=== PATIENT | female | born 1975 | race African-American/Black ===

== ENCOUNTER 2016-12-05 09:03 | Day surgery (SDC) | payer MEDICAID ==
[~2016-12-05 09:03] MED LIST: DIPHENHYDRAMINE HCL 50 MG/ML VIAL ONE; EPINEPHRINE INJ 1 MG/10 ML DISP.SYRIN ONE; FENTANYL CITRATE INJ/PF 100 MCG/2 ML AMPUL ONE; FLUMAZENIL INJ 0.5 MG/5 ML VIAL IV ONE; GLUCAGON,HUMAN RECOMB 1 MG INJ ONE; MIDAZOLAM 2 MG/2 ML INJ ONE; NALOXONE HCL INJ/PF 0.4 MG/1 ML SDV ONE; ONDANSETRON HCL INJ/PF 4 MG/2 ML SDV ONE; PROMETHAZINE HCL INJ 25 MG/1 ML VIAL ONE
[2016-12-05] MEDS: MIDAZOLAM 2 MG/2 ML INJ ONE ×3 (09:22→09:30)
--- NOTE | 2016-12-05 09:40 | Operative Report ---
Operative Report DATE OF SURGERY: 12/05/16 Operative Report: The risks benefits and alternatives of the procedure explained to the patient in detail and informed consent is obtained that GIF Olympus video scope was inserted into the patient's mouth and hypopharynx the esophagus is identified intubated and insufflated the scope was then advanced through the esophagus stomach and duodenum retroflexion maneuver is done the esophagus stomach and first and second portions of the duodenum examined PREOPERATIVE DIAGNOSIS: Nausea vomiting dyspepsia POSTOPERATIVE DIAGNOSIS: Gastritis status post biopsy. Gastric aspirate obtained to rule out for microbiology. Patient had previous biopsies demonstrating an infection etiology unknown. Apparently was not consistent with Helicobacter pylori OPERATION: EGD with biopsy SURGEON: BRONWYN MENDES ANESTHESIA: Moderate Sedation - 6 mg of Versed, 100 micrograms of fentanyl. TISSUE REMOVED OR ALTERED: Gastric specimen rule out Helicobacter pylori COMPLICATIONS: None. ESTIMATED BLOOD LOSS: none. INTRAOPERATIVE FINDINGS: Patent esophagus. Gastritis. Normal first and second portions of the duodenum PROCEDURE: Patient tolerated the procedure well. No immediate postprocedure complications are noted. Patient is discharged in good condition. Discharge date 12/05/2016. Discharge diet: Regular. Discharge activity: Regular. Patient does have a 2-3 week follow-up to discuss findings. She is instructed to call the office or proceed to the emergency room if there are any further problems or questions. We'll await on biopsies and microbiology report from the gastric aspirate.
[2016-12-05 10:38] VITALS: BP 121/56
== END 2016-12-05 11:00 | disposition home or self-care (01) ==
LOC: END 09:03
PROVIDERS: ATTEND Internal Medicine Gastroenterology
PROC: 0DB68ZX Excision of Stomach, Via Natural or Artificial Opening Endoscopic, Diagnostic (ICD-10-PCS; principal; 2016-12-05 09:30)
DX: K29.50 Unspecified chronic gastritis without bleeding (principal); K21.9 Gastro-esophageal reflux disease without esophagitis; E78.2 Mixed hyperlipidemia; Z79.899 Other long term (current) drug therapy; Z88.0 Allergy status to penicillin; Z88.6 Allergy status to analgesic agent
CPT/HCPCS: 43239; 88342 ×2; 88305 ×2; J2250; J3010; J1610; 36415; J0171; J1200; J2310; J2405; J2550; J3490

== ENCOUNTER → 2016-12-16 | Outpatient (CLI) | payer MEDICAID | LOC: RAD 09:28 | PROVIDERS: ATTEND Podiatrist Foot & Ankle Surgery | DX: Q66.9 Congenital deformity of feet, unspecified (principal) ==

== ENCOUNTER 2017-01-02 07:42 | Day surgery (SDC) | payer MEDICAID ==
[2016-12-31 10:27] LABS: APPEARANCE,URINE SLIGHTLY-CLOUDY; BILIRUBIN,URINE NEGATIVE (NEGATIVE); GLUCOSE, URINE NEGATIVE (NEGATIVE); KETONES,URINE NEGATIVE (NEGATIVE); LEUKOCYTE ESTERASE,URINE NEGATIVE (NEGATIVE); NITRITE,URINE NEGATIVE (NEGATIVE); PROTEIN,URINE NEGATIVE (NEGATIVE); URINE SPECIFIC GRAVITY 1.028
[2016-12-31 10:34] LABS: ABSOLUTE EOSINOPHILS # (AUTO) 0.2 10^3/uL (0.0-0.6); ABSOLUTE LYMPHOCYTES (AUTO) 2.5 10^3/uL (0.5-4.7); ABSOLUTE MONOCYTES (AUTO) 0.5 10^3/uL (0.1-1.4); ABSOLUTE NEUT (AUTO) 3.1 10^3/uL (1.7-8.2); BASOPHILS % (AUTO) 0.3 % (0-2); EOSINOPHILS % (AUTO) 2.5 % (0-6); HEMATOCRIT 37.3 % (36.0-47.0); HEMOGLOBIN 12.4 g/dL (12.0-15.5); HGB HCT DIFFERENCE -0.1; LYMPHOCYTES % (AUTO) 39.5 % (13-45); MEAN CORPUSCULAR HEMOGLOBIN 30.3 pg (27.0-33.4); MEAN CORPUSCULAR HGB CONC 33.3 g/dL (32.0-36.0); MEAN CORPUSCULAR VOLUME 91 fl (80-97); MONOCYTES % (AUTO) 8.7 % (3-13); RED CELL DISTRIBUTION WIDTH 13.4 % (11.5-14.0); WHITE BLOOD COUNT 6.3 10^3/uL (4.0-10.5)
[~2017-01-02 07:42] MED LIST changes: +BUPIVACAINE HCL 0.5 % INJ/PF 30 ML SDV ONE; +CLINDAMYCIN 600 MG/D5W RTU 600 MG/50 ML RTUPB IV PRN; -DIPHENHYDRAMINE HCL 50 MG/ML VIAL ONE; -EPINEPHRINE INJ 1 MG/10 ML DISP.SYRIN ONE; -FENTANYL CITRATE INJ/PF 100 MCG/2 ML AMPUL ONE; -FLUMAZENIL INJ 0.5 MG/5 ML VIAL IV ONE; -GLUCAGON,HUMAN RECOMB 1 MG INJ ONE; +LIDOCAINE 2% INJ (20 MG/ML) 20 ML MDV ONE; -MIDAZOLAM 2 MG/2 ML INJ ONE; -NALOXONE HCL INJ/PF 0.4 MG/1 ML SDV ONE; -ONDANSETRON HCL INJ/PF 4 MG/2 ML SDV ONE; -PROMETHAZINE HCL INJ 25 MG/1 ML VIAL ONE; +RINGERS SOLUTION,LACTATED 1,000 ML IV PRN
[2017-01-02] MEDS ORDERED: KETOROLAC TROMETHAMINE 60 MG/2 ML SDV ONE (08:48)
[2017-01-02] MEDS ORDERED: FENTANYL CITRATE INJ/PF 100 MCG/2 ML AMPUL ONE (08:48)
[2017-01-02] MEDS ORDERED: MIDAZOLAM 2 MG/2 ML INJ ONE (08:48)
[2017-01-02] MEDS ORDERED: LIDOCAINE 2% INJ-PF (20 MG/ML) 10 ML AMPUL ONE (08:48)
[2017-01-02] MEDS ORDERED: DIPHENHYDRAMINE HCL 50 MG/ML VIAL ONE (08:48)
[2017-01-02] MEDS ORDERED: PROPOFOL INJ 200 MG/20 ML VIAL IV ONE (08:49)
[2017-01-02] MEDS ORDERED: ONDANSETRON HCL INJ/PF 4 MG/2 ML SDV ONE (08:57)
[2017-01-02] MEDS: FENTANYL CITRATE INJ/PF 100 MCG/2 ML AMPUL ONE ×2 (10:50→10:55)
--- NOTE | 2017-01-02 11:53 | [facility] OPERATIVE REPORT E ---
[facility] Operative Report NAME: TREVER NICOLAS AGE: 41Y DATE OF SURGERY: 01/02/2017 ROOM: PREOPERATIVE DIAGNOSES: TAILOR BUNION RIGHT FOOT. DIGITI QUINTI VARUS FIFTH TOE RIGHT FOOT. POSTOPERATIVE DIAGNOSIS: TAILOR BUNION RIGHT FOOT. DIGITI QUINTI VARUS FIFTH TOE RIGHT FOOT. OPERATION: Oblique osteotomy fifth metatarsal head, right foot. Phalangectomy fifth toe right foot. SURGEON: ENRIQUETA VELASQUEZ D.P.M. INTRAOPERATIVE FINDINGS: Intraoperative findings indicated a plantar flexion with lateral deviation of the fifth metatarsal which has caused a very painful hyperkeratoma under the fifth metatarsophalangeal joint. There was a varus rotation of the fifth toe with dislocation of the distal interphalangeal joint which has created a very painful corn over the dorsal lateral aspect of the fifth toe. Intraoperative findings were confirmed clinically and radiographically. PROCEDURE: With the patient lying in the dorsal recumbent position, the right foot and leg were prepped and draped in the usual standard sterile orthopedic manner. After the anesthetic effect was accomplished, the right leg was elevated for approximately 2 minutes' of time and the right ankle pneumatic tourniquet was inflated up to 250 mmHg after the blood was exsanguinated from the right foot. The right leg was brought to the level of the table. Attention was directed right over the fifth metatarsophalangeal joint. A curvilinear incision was placed right over the joint. The initial incision was deepened. The superficial and deep subcutaneous tissues were dissected with blunt and sharp dissection. This dissection was carried until the capsular structures were brought into the surgical field. By this time, all bleeders were ligated, all vital structures were identified and protected from surgical trauma. Next, a vertical capsulotomy was performed. Capsular and periosteal structures were dissected of bone and the surgical neck of the fifth metatarsal was brought into the surgical field. At this point, the osteotomy was performed at this level from dorsal to plantar direction. It was angulated about 45 degrees to the long axis of the fifth metatarsal and the direction of angulation was medial proximal to lateral distal direction. After the osteotomy was completed, the head was shifted medially and dorsally which realigned the fifth metatarsophalangeal joint and removed the pressure from the plantar aspect of the fifth metatarsophalangeal joint. Next, the fifth toe was evaluated. It continued to be in a varus position and the decision was made to correct the deformity. A curvilinear incision was placed right over the fifth toe. The initial incision was deepened. The superficial and deep subcutaneous tissues were dissected via blunt and sharp dissection. All bleeders were ligated by this time. At this point, a transverse incision was placed right over the distal interphalangeal joint. Capsular and periosteal structures were dissected of bone and the partial phalangectomy was performed. This allowed the fifth toe to acquire a rectus position. Final evaluation was conducted. Correction was extremely satisfactory and at this point, the right ankle pneumatic tourniquet was deflated. Circulation returned to normal immediately as the normal digital color and temperature became apparent. Next, the surgical areas were irrigated with copious amounts of sterile saline solution. At this point, the capsular structures around the fifth metatarsophalangeal joint and the distal interphalangeal joint of the fifth toe were closed with 3-0 Vicryl. The subcutaneous tissues from deep to superficial were closed with 3-0 Vicryl. The skin edges were repositioned and closed with 4-0 nylon using continuous interlocked stitch. A Betadine compression dressing was applied around the surgical foot, followed with an Sánchez bandage and a surgical shoe. This patient tolerated the procedures well and left the operating room with stable vital signs and in good condition. The patient was taken to the recovery room alert, conscious and oriented. There are no permanent disabilities anticipated at this time. DICTATING PHYSICIAN: ENRIQUETA VELASQUEZ D.P.M. [id number] PHY#: [id number] ID: [id number] JOB#: [id number] ACCT: [id number] cc:ENRIQUETA VELASQUEZ D.P.M. >
== END 2017-01-02 11:46 | disposition home or self-care (01) ==
LOC: SC 07:42
PROVIDERS: ATTEND Podiatrist Foot & Ankle Surgery
PROC: 0QBN0ZZ Excision of Right Metatarsal, Open Approach (ICD-10-PCS; 2017-01-02)
PROC: 0QBQ0ZZ Excision of Right Toe Phalanx, Open Approach (ICD-10-PCS; principal; 2017-01-02 08:45)
DX: M21.621 Bunionette of right foot (principal); M21.171 Varus deformity, not elsewhere classified, right ankle; I49.9 Cardiac arrhythmia, unspecified; K21.9 Gastro-esophageal reflux disease without esophagitis; Z79.899 Other long term (current) drug therapy
CPT/HCPCS: 36415; 85025; 81001; 28124; 28306; J2250; S0077; J3490 ×2; J1200; J3010; J2405; J2704; 1480; J1885

== ENCOUNTER → 2017-02-13 | Outpatient (CLI) | payer MEDICAID | LOC: OD 08:18 | PROVIDERS: ATTEND Podiatrist Foot & Ankle Surgery | DX: Z98.890 Other specified postprocedural states (principal) ==

== ENCOUNTER → 2017-03-12 | Outpatient (CLI) | payer MEDICAID | LOC: OD 09:30 | PROVIDERS: ATTEND Podiatrist Foot & Ankle Surgery | DX: Z98.890 Other specified postprocedural states (principal) ==

== ENCOUNTER → 2017-04-13 | Outpatient (CLI) | payer MEDICAID ==
--- NOTE | 2017-04-13 15:43 | XCELERA REPORT ---
[address] [address] Lower Extremity Venous Evaluation Name: TREVER NICOLAS Age: 42 yrs Gender: Female : 1975 Patient Status: Outpatient Patient Location: Study Date: 04/13/2017 02:57 PM Procedure: Color flow and duplex imaging of the veins of the right lower extremity as well as the left Common Femoral vein. Reason For Study: RLE PAIN, SWELLING Ordering Physician: ENRIQUETA AWAN Performed By: Una Fang Right Sided Venous Evaluation Normal vessel filling wall to wall, compression and augmentation as well as Colour flow down to the infrageniculate veins. Left Sided Venous Evaluation The left common femoral vein is fully compressible. Spontaneous and phasic flow is present in the left common femoral vein. Critical Findings Called in to Dr Awan at about 1600. Interpretation Summary No duplex evidence of DVT or obstruction in the right lower extremity nor in the left Common Femoral vein. : ENRIQUETA AWAN > Cruz Carbajal
== END ==
LOC: SP 14:52
PROVIDERS: ATTEND Podiatrist Foot & Ankle Surgery
DX: M79.604 Pain in right leg (principal); M79.89 Other specified soft tissue disorders
CPT/HCPCS: 93971

== ENCOUNTER 2017-05-15 06:38 | Day surgery (SDC) | payer MEDICAID ==
[2017-05-12 10:51] LABS: APPEARANCE,URINE CLOUDY; BILIRUBIN,URINE NEGATIVE (NEGATIVE); GLUCOSE, URINE NEGATIVE (NEGATIVE); KETONES,URINE NEGATIVE (NEGATIVE); LEUKOCYTE ESTERASE,URINE NEGATIVE (NEGATIVE); NITRITE,URINE NEGATIVE (NEGATIVE); PROTEIN,URINE NEGATIVE (NEGATIVE); URINE SPECIFIC GRAVITY 1.021; UROBILINOGEN,URINE NEGATIVE mg/dL (<2.0)
[2017-05-12 10:59] LABS: ABSOLUTE EOSINOPHILS # (AUTO) 0.2 10^3/uL (0.0-0.6); ABSOLUTE LYMPHOCYTES (AUTO) 2.6 10^3/uL (0.5-4.7); ABSOLUTE MONOCYTES (AUTO) 0.6 10^3/uL (0.1-1.4); ABSOLUTE NEUT (AUTO) 3.3 10^3/uL (1.7-8.2); BASOPHILS % (AUTO) 0.5 % (0-2); EOSINOPHILS % (AUTO) 3.6 % (0-6); HEMATOCRIT 36.4 % (36.0-47.0); HGB HCT DIFFERENCE -0.4; LYMPHOCYTES % (AUTO) 38.6 % (13-45); MEAN CORPUSCULAR HGB CONC 33.1 g/dL (32.0-36.0); MEAN CORPUSCULAR VOLUME 91 fl (80-97); RED BLOOD COUNT 4.02 10^6/uL (3.72-5.28); RED CELL DISTRIBUTION WIDTH 13.2 % (11.5-14.0); SEGMENTED NEUTROPHILS % (AUTO) 48.3 % (42-78); WHITE BLOOD COUNT 6.7 10^3/uL (4.0-10.5)
[~2017-05-15 06:38] MED LIST changes: -BUPIVACAINE HCL 0.5 % INJ/PF 30 ML SDV ONE; +CEFAZOLIN 1 GM/D5W RTU 1 GM/50 ML RTUPB IV PRN; -CLINDAMYCIN 600 MG/D5W RTU 600 MG/50 ML RTUPB IV PRN; -LIDOCAINE 2% INJ (20 MG/ML) 20 ML MDV ONE
[2017-05-15] MEDS ORDERED: DIPHENHYDRAMINE HCL 50 MG/ML VIAL ONE (07:10)
[2017-05-15] MEDS ORDERED: LIDOCAINE 2% INJ (20 MG/ML) 20 ML MDV ONE (07:10)
[2017-05-15] MEDS ORDERED: KETOROLAC TROMETHAMINE 60 MG/2 ML SDV ONE (07:11)
[2017-05-15] MEDS ORDERED: BUPIVACAINE HCL 0.5 % INJ/PF 30 ML SDV ONE (07:11)
[2017-05-15] MEDS ORDERED: FENTANYL CITRATE INJ/PF 100 MCG/2 ML AMPUL ONE (07:11)
[2017-05-15] MEDS ORDERED: MIDAZOLAM 2 MG/2 ML INJ ONE ×2 (07:11)
[2017-05-15] MEDS ORDERED: LIDOCAINE 2% INJ-PF (20 MG/ML) 10 ML AMPUL ONE (07:11)
[2017-05-15] MEDS ORDERED: PROPOFOL INJ 200 MG/20 ML VIAL IV ONE (07:12)
[2017-05-15] MEDS ORDERED: CLINDAMYCIN 600 MG/D5W RTU 600 MG/50 ML RTUPB IV ONE (07:30)
[2017-05-15] MEDS ORDERED: ONDANSETRON HCL INJ/PF 4 MG/2 ML SDV ONE (07:35)
[2017-05-15] MEDS ORDERED: CLINDAMYCIN 600 MG/D5W RTU 600 MG/50 ML RTUPB IV PRN (07:37)
--- NOTE | 2017-05-15 16:39 | RADIOLOGY REPORT (SQ) ---
EXAM DESCRIPTION: FOOT RIGHT 2 VIEWS COMPLETED DATE/TIME: 05/15/2017 2:22 pm REASON FOR STUDY: RT GREAT TOE OPEN WEDGE BASE PROX HALLUX M20.21 HALLUX RIGIDUS, RIGHT FOOT COMPARISON: None. FLUOROSCOPY TIME: 0.05 seconds 3 images saved to PACS. TECHNIQUE: Intra-operative images acquired during surgical procedure to evaluate progress. NUMBER OF IMAGES: 3 image LIMITATIONS: None. FINDINGS: Fluoroscopic images were obtained during osteotomy for hallux valgus. Orthopedic pin is i dentified IMPRESSION: IMAGE(S) OBTAINED DURING PROCEDURE. COMMENT: Quality ID [id number]: Final reports for procedures using fluoroscopy that document radiation exp osure indices, or exposure time and number of fluorographic images (if radiation exposure indices are not available) Please consult full operative report of the attending physician for description of the procedure. TECHNICAL DOCUMENTATION: JOB ID: [id number] [employer]- All Rights Reserved
--- NOTE | 2017-05-15 16:39 | RADIOLOGY REPORT (SQ) ---
EXAM DESCRIPTION: NO CHG FLUORO COMPLETE DATE/TIME: 05/15/2017 2:22 pm REASON FOR STUDY: RT GREAT TOE RE-SURFACING JOHN M20.21 HALLUX RIGIDUS, RIGHT FOOT FINDINGS: Please see combined report for performance of procedure and radiologic supervision and int erpretation. IMPRESSION: Please see combined report for performance of procedure and radiologic supervision and i nterpretation.
--- NOTE | 2017-06-11 10:02 | [facility]PERAT[facility] REPORT E ---
[facility] Operative Report NAME: TREVER NICOLAS AGE: 42Y DATE OF SURGERY: 05/15/2017 ROOM: PREOPERATIVE DIAGNOSIS: Hallux limitus, right foot. POSTOPERATIVE DIAGNOSIS: Hallux limitus, right foot. PROCEDURE PERFORMED: 1. Revision surgery with total Tuttle implant, right first metatarsophalangeal joint. 2. Application of amniotic allograft over the denuded bone, first metatarsal, right foot. SURGEON: ENRIQUETA VELASQUEZ D.P.M. INTRAOPERATIVE FINDINGS: Indicated total failure from a eunice-implant that has been used in the past to correct the above structural deformity of the right foot. The eunice-implant was totally submerged with proliferated bone tissue at the base of the proximal phalanx. The eunice-implant was introduced into the base of the proximal phalanx. This proliferation of bone has totally blocked the joint and the patient had the same symptoms of lack of motion of the first metatarsophalangeal joint prior to the eunice-implant. Intraoperative findings were confirmed clinically and radiographically. PROCEDURE: With the patient laying in a dorsal recumbent position the right foot and leg were prepped and draped in the usual standard sterile orthopedic manner after the local anesthesia was administered which was a total ankle block. After the anesthetic effect was accomplished the right leg was elevated for approximately 2 minutes of time and the right ankle pneumatic tourniquet was inflated up to 250 mmHg after the blood was exsanguinated from the right foot. The right leg was brought to the level of the table. Attention was directed over the first metatarsophalangeal joint. A curvilinear incision was placed right over the joint. The initial incision was deepened. The superficial and deep subcutaneous tissues were dissected via blunt and sharp dissection. All bleeders were ligated. All vital structures were identified and protected from surgical trauma. At this point all the adhesions that had been created by the previous 2 surgeries were released and the joint was able to be opened sufficiently in order to continue with the rest of the surgical work. At this point the eunice-implant was removed from the base of the proximal phalanx. A resection of all abnormal bone was carried at this point. Next, the head of the first metatarsal was reamed and the bed for the longer arm of the implant was created at this point. Next, the base of the proximal phalanx was also remodeled. The bed for the short arm of the implant was also created very gingerly since there was already a provision of space created by the previous implant. At this point the anamaria implant was introduced into the surgical field and it was a size 1 anamaria implant. The joint was put through a full range of motion and there was already over 80% dorsiflexion of the hallux on the first metatarsal. At this point the anamaria implant was removed. The surgical area was irrigated with copious amounts of sterile saline solution and the actual implant was introduced into the first metatarsophalangeal joint. This was a RTS flexible first MPJ total implant. The implant was introduced into the prepared surgical area. It seated very well and there was full range of motion. The hallux was able to dorsiflex about 80-85 degrees dorsally. At this point the decision was made not to use the grommets due to previous signs of proliferation of bone due to jamming by the metal grommets that might be created. Next, the capsular structures were closed with 2-0 Vicryl. The subcutaneous tissue from deep to superficial was closed with 3-0 Vicryl very gingerly to prevent additional excessive scarring of the subcutaneous tissues. The skin edges were repositioned and were anchored down with 4-0 nylon using continuous interlocked stitch. ADDENDUM: Prior to closure of the capsule, the denuded bony sites at the distal aspect of the first metatarsal and the base of the proximal phalanx were covered with amniotic allograft to prevent not only excessive bleeding of the bone but also to prevent adhesions of the capsule to the bone which is going to interfere with range of motion of the implant. After the successful closure of the skin, a Betadine compression dressing was applied around the surgical area of the right foot which followed with Sánchez bandage and a surgical shoe. This patient tolerated the procedures well, left the operating room with stable vital signs and in good condition. The immediate postoperative recovery was also very uneventful. Patient was sent home with instructions for postoperative care at home. Patient had the discussion of how to manage the pain medicine and the antibiotics postoperatively. Patient was allowed to return to normal diet. Follow-up appointment was set in my office in 72 hours. There are no permanent disabilities anticipated at this time. DICTATING PHYSICIAN: ENRIQUETA VELASQUEZ D.P.M. [id number] PHY#: [id number] ID: [id number] JOB#: [id number] ACCT: [id number] cc:ENRIQUETA VELASUQEZ D.P.M. >
== END 2017-05-15 11:06 | disposition home or self-care (01) ==
LOC: SC 06:38
PROVIDERS: ATTEND Podiatrist Foot & Ankle Surgery
DX: M20.5X1 Other deformities of toe(s) (acquired), right foot (principal); K21.9 Gastro-esophageal reflux disease without esophagitis; Z79.899 Other long term (current) drug therapy; Z88.0 Allergy status to penicillin; Z88.6 Allergy status to analgesic agent
CPT/HCPCS: 36415; 85025; 81001; 73620; 28309; J2250; S0077; J3490 ×2; J1200; J1885; J3010; J2405; J2704; 01480; J0690

== ENCOUNTER 2017-07-26 08:17 | Emergency (ER) | payer MEDICAID ==
--- NOTE | 2017-07-26 08:49 | ER Document Report ---
ED General - General Chief Complaint: Abdominal Pain Stated Complaint: ABDOMINAL PAIN Time Seen by Provider: 07/26/17 08:32 TRAVEL OUTSIDE OF THE [place] IN LAST 30 DAYS: No - HPI Notes: Patient is a 42-year-old female with a history of acid reflux who presents to the ED complaining of suprapubic pressure, dysuria, possible yeast infection, low back pain, occasional mild headache, right ear pain 2 days. Patient states that she did feel feverish a couple days ago, but that has since resolved. Patient states that she still eating and drinking without any difficulties. She is having normal bowel movements otherwise. She has not been using [id number] meds for her medications. Patient states that she has had chronic back pain issues and this is similar. Patient states that the pain is an ache and is bilaterally to the L-spine. The pain does not radiate around into the groin. The pain has not been intermittent. Denies any injury. Denies any procedures or injections to her back. Denies any smoking or IV drug use. Patient denies any pain in her abdomen. She denies any reid blood, vaginal bleeding/odor. Denies any current headache, fever, head injury, neck pain, URI, sore throat, chest pain, palpitations, syncope, cough, shortness of breath, wheeze, dyspnea, abdominal pain, nausea/vomiting/diarrhea, urinary retention, hematuria, loss of control of bowel or bladder, numbness/tingling, saddle anesthesia, muscle paralysis/weakness, or rash. Denies any recent illness. Patient also complains of a possible bump to her right lower anteromedial leg x1mo. Pt states that it has since resolved. She never had any erythema, warmth , abscess, discharge, or pain associated. - Related Data Allergies/Adverse Reactions: Penicillins Allergy (Mild, Verified 07/26/17 08:26) Unknown reaction NSAIDS (Non-Steroidal Anti-Inflamma [Nsaids] Adverse Reaction (Mild, Verified 08:26) stomach upset Past Medical History - Social History Smoking Status: Unknown if Ever Smoked Family History: Reviewed & Not Pertinent Patient has suicidal ideation: No Patient has homicidal ideation: No - Past Medical History Cardiac Medical History: Denies: Hx Coronary Artery Disease, Hx Heart Attack, Hx Hypertension Pulmonary Medical History: Denies: Hx Asthma, Hx Bronchitis, Hx COPD, Hx Pneumonia Neurological Medical History: Denies: Hx Cerebrovascular Accident, Hx Seizures Renal/ Medical History: Denies: Hx Peritoneal Dialysis GI Medical History: Reports: Hx Gastroesophageal Reflux Disease, Hx Hiatal Hernia. Denies: Hx Hepatitis, Hx Ulcer Musculoskeltal Medical History: Denies Hx Arthritis Infectious Medical History: Denies: Hx Hepatitis Past Surgical History: Reports: Hx Orthopedic Surgery - R big and small toe, carpel tunnel bilaterally, Hx Tonsillectomy, Hx Tubal Ligation. Denies: Hx Hysterectomy, Hx Mastectomy, Hx Open Heart Surgery, Hx Pacemaker - Immunizations Immunizations up to date: Yes Hx Diphtheria, Pertussis, Tetanus Vaccination: Yes Review of Systems - Review of Systems Notes: REVIEW OF SYSTEMS: CONSTITUTIONAL : Denies fever, chills, or sweats. Denies recent illness. EENT: Denies eye, ear, throat, or mouth pain or symptoms. Denies nasal or sinus congestion or discharge. Denies throat, tongue, or mouth swelling or difficulty swallowing. CARDIOVASCULAR: Denies chest pain. Denies palpitations or racing or irregular heart beat. Denies ankle edema. RESPIRATORY: Denies cough, cold, or chest congestion. Denies shortness of breath, difficulty breathing, or wheezing. GASTROINTESTINAL: see hpi. Denies abdominal pain or distention. Denies nausea , vomiting, or diarrhea. Denies blood in vomitus, stools, or per rectum. Denies black, tarry stools. Denies constipation. GENITOURINARY: see hpi FEMALE GENITOURINARY: Denies vaginal bleeding, heavy or abnormal periods, irregular periods. Denies vaginal discharge or odor. MUSCULOSKELETAL: Denies back or neck pain or stiffness. Denies joint pain or swelling. SKIN: Denies rash, lesions or sores. NEUROLOGICAL: Denies confusion or altered mental status. Denies passing out or loss of consciousness. Denies dizziness or lightheadedness. Denies headache. Denies weakness or paralysis or loss of use of either side. Denies problems with gait or speech. Denies sensory loss, numbness, or tingling. ALL OTHER SYSTEMS REVIEWED AND NEGATIVE. Dictation was performed using [employer] recognition software Physical Exam - Vital signs Vitals: Temp Pulse Resp BP Pulse Ox 99.1 F 98 16 140/88 H 98 07/26/17 08:20 07/26/17 08:20 07/26/17 08:20 07/26/17 08:20 07/26/17 08:20 Notes: PHYSICAL EXAMINATION: GENERAL: Well-appearing, well-nourished and in no acute distress. A&Ox4. Pt sitting comfortably on the exam table in no apparent distress or discomfort. HEAD: Atraumatic, normocephalic. Nontender. EYES: Pupils equal round and reactive to light, extraocular movements intact, conjunctiva are normal. ENT: Nares patent, oropharynx clear without exudates. Moist mucous membranes. EAC's clear bilaterally. TMs intact bilaterally without erythema fluid or perforation. No tonsillar hypertrophy or erythema. No sinus tenderness. NECK: Normal range of motion, supple without lymphadenopathy. No rigidity/ meningismus. LUNGS: Breath sounds clear to auscultation bilaterally and equal. No wheezes rales or rhonchi. HEART: Regular rate and rhythm without murmurs ABDOMEN: Soft, NONtender, nondistended abdomen. No guarding, no rebound. No masses appreciated. Normal bowel sounds present. CVA tenderness negative bilaterally. Psoas/rosving negative. Female : No inguinal adenopathy. External genitalia without erythema, lesions , or masses. Vaginal mucosa pink with white discharge Cervix parous, pink, and without discharge. Uterus is smooth. No adnexal tenderness. Musculoskeletal: LE's b/l: FROM to passive/active. Strength 5+/5. Extremities: No cyanosis/clubbing/edema b/l. Peripheral pulses 2+. Capillary refill less than 3 seconds. NEUROLOGICAL: MMSE intact. Cranial nerves grossly intact. Normal speech, normal gait. Normal sensory, motor exams PSYCH: Normal mood, normal affect. SKIN: Warm, Dry, normal turgor, no rashes or lesions noted. Course - Re-evaluation Re-evalutation: 07/26/17 09:36 Patient is an afebrile, well-hydrated, 42-year-old female who presents to the ED with back pain, suspected UTI, and bacterial vaginosis based on H&P today. Vitals are stable. PE otherwise unremarkable. CBC, CMP, lipase, urine unremarkable. See urinalysis results. Urine cultures pending. See wet mount results. Chlamydia/gonorrhea pending, but I have a low suspicion of an STD infection. Zithromax 1 g given p.o. today. Patient is allergic to penicillins (unknown rxn) so we will hold off on the Rocephin injection at this time. Risks and benefits are understood. Patient is in agreement that she will return if she needs the Rocephin injection. No other imaging warranted today. Low suspicion/risk for acute appendicitis, bowel obstruction, acute cholecystitis, acute cholangitis, perforated diverticulitis, incarcerated hernia , pancreatitis, perforated ulcer, peritonitis, sepsis, pelvic inflammatory disease, ectopic , tubo-ovarian abscess, ovarian torsion, meningitis, disk herniation causing severe spinal stenosis, cauda equina, epidural mass lesion, abscess, fracture, or other systemic emergent condition at this time. Patient is aware that her condition can change from initial presentation and she needs to monitor symptoms closely and seek medical attention if any acute changes. I will send her home with a prescription for Flagyl to take twice daily for 1 week as well as macrobid. Conservative measures otherwise for symptoms. Recheck with OBGYN in 3-5 days. Recheck with your PCM in 3-5 days. Return to the ED with any worsening/concerning symptoms otherwise as reviewed in discharge. Patient is in agreement. - Vital Signs Vital signs: Temp Pulse Resp BP Pulse Ox 99.1 F 98 16 140/88 H 98 07/26/17 08:20 07/26/17 08:20 07/26/17 08:20 07/26/17 08:20 07/26/17 08:20 - Laboratory Result Diagrams: 07/26/17 08:55 07/26/17 08:55 Laboratory results interpreted by me: 07/26/17 07/26/17 07/26/17 08:55 08:55 08:55 Hct 35.9 L Calcium 10.7 H Total Bilirubin 1.6 H AST 38 H Urine Protein 100 H Ur Leukocyte Esterase MODERATE H Urine Ascorbic Acid 40 H Procedures - Pelvic Exam Pelvic exam Time completed: 09:05 Cultures obtained: Yes Wet prep obtained: Yes Bimanual exam performed: Yes - neg Witnessed by: Nurse Dorie accompanied Discharge - Discharge Clinical Impression: Bacterial vaginosis UTI (urinary tract infection) Qualifiers: Urinary tract infection type: site unspecified Hematuria presence: without hematuria Qualified Code(s): N39.0 - Urinary tract infection, site not specified Condition: Stable Disposition: HOME, SELF-CARE Instructions: Metronidazole ([facility]), Nitrofurantoin ([facility]), Urinary Tract Infection ([facility]), Follow-Up Care ([facility]) Additional Instructions: Push fluids (i.e. water, cranberry juice) Proper hygenic technique Keep the skin clean Safe sexual practices with condoms everytime Tylenol/ibuprofen as needed May use over the counter AZO for burning with urination Check in with the health department this week for further testing if warranted/ needed Your chlamydia/Gonorrhea test are pending and you will be notified if positive results; you may call in 2 days for the results as well Return immediately if symptoms worsen F/u with your PCM in 2-3 days for a recheck Recheck with your OBGYN in 3-5 days. Consider consult with a Urologist for ongoing/worsening symptoms. Return to the ED with any development of GRANDE/fever, trouble with vision, eye redness, worsening pain, urethral discharge, urinary retention, blood in the urine, flank pain, abdominal pain, n/v, Chest Pain, shortness of breath, joint pains, trouble breathing, or any other worsening/concerning symptoms as needed otherwise. Prescriptions: Metronidazole [Flagyl] 500 mg PO BID #14 tablet Nitrofurantoin/Nitrofuran Mac [Macrobid 100 mg Capsule] 1 tab PO BID #14 capsule Forms: Elevated Blood Pressure Referrals: KIRK MARIE DO [Primary Care Provider] - Follow up in 3-5 days [facility] [Provider Group] - Follow up as needed
[2017-07-26 09:20] LABS: ABSOLUTE EOSINOPHILS # (AUTO) 0.2 10^3/uL (0.0-0.6); ABSOLUTE LYMPHOCYTES (AUTO) 2.5 10^3/uL (0.5-4.7); ABSOLUTE MONOCYTES (AUTO) 0.9 10^3/uL (0.1-1.4); ABSOLUTE NEUT (AUTO) 5.6 10^3/uL (1.7-8.2); BASOPHILS % (AUTO) 0.3 % (0-2); EOSINOPHILS % (AUTO) 1.7 % (0-6); HEMATOCRIT 35.9 % (36.0-47.0); HEMOGLOBIN 12.3 g/dL (12.0-15.5); LYMPHOCYTES % (AUTO) 26.8 % (13-45); MEAN CORPUSCULAR HEMOGLOBIN 31.1 pg (27.0-33.4); MEAN CORPUSCULAR HGB CONC 34.3 g/dL (32.0-36.0); MEAN CORPUSCULAR VOLUME 91 fl (80-97); MONOCYTES % (AUTO) 10.1 % (3-13); RED BLOOD COUNT 3.96 10^6/uL (3.72-5.28); RED CELL DISTRIBUTION WIDTH 13.6 % (11.5-14.0); SEGMENTED NEUTROPHILS % (AUTO) 61.1 % (42-78); WHITE BLOOD COUNT 9.2 10^3/uL (4.0-10.5)
[2017-07-26 09:24] LABS: APPEARANCE,URINE SLIGHTLY-CLOUDY; BILIRUBIN,URINE NEGATIVE (NEGATIVE); GLUCOSE, URINE NEGATIVE (NEGATIVE); KETONES,URINE NEGATIVE (NEGATIVE); LEUKOCYTE ESTERASE,URINE MODERATE (NEGATIVE); NITRITE,URINE NEGATIVE (NEGATIVE); PROTEIN,URINE 100 mg/dL (NEGATIVE); URINE SPECIFIC GRAVITY 1.019; UROBILINOGEN,URINE NEGATIVE mg/dL (<2.0)
[2017-07-26 09:31] LABS: ALANINE AMINOTRANSFERASE 51 U/L (9-52); ALBUMIN 4.3 g/dL (3.5-5.0); ALKALINE PHOSPHATASE 89 U/L (38-126); ANION GAP 10 (5-19); ASPARTATE AMINO TRANSFERASE 38 U/L (14-36); BILIRUBIN,DIRECT 0.4 mg/dL (0.0-0.4); BILIRUBIN,TOTAL 1.6 mg/dL (0.2-1.3); BLOOD UREA NITROGEN 12 mg/dL (7-20); CALCIUM 10.7 mg/dL (8.4-10.2); CARBON DIOXIDE 27 mmol/L (22-30); CHLORIDE 105 mmol/L (98-107); CREATININE RESULT 0.88 mg/dL (0.52-1.25); GLUCOSE 97 mg/dL (75-110); LIPASE 83.2 U/L (23-300); POTASSIUM 3.9 mmol/L (3.6-5.0); SODIUM 141.6 mmol/L (137-145); TOTAL PROTEIN 7.6 g/dL (6.3-8.2)
[2017-07-26] MEDS ORDERED: AZITHROMYCIN 250 MG TABLET PO ONE (09:38)
[2017-07-26 10:37] VITALS: BP 126/77
[2017-07-26 11:04] LABS: CHLAM PCR NOT DETECTED (NOT DETECT)
== END 2017-07-26 10:37 | disposition home or self-care (01) ==
LOC: ER 08:17
DX: N39.0 Urinary tract infection, site not specified (principal); N76.0 Acute vaginitis; B96.89 Other specified bacterial agents as the cause of diseases classified elsewhere; Z98.51 Tubal ligation status; Z88.0 Allergy status to penicillin
CPT/HCPCS: 99283; 36415; 87086; 87210; 83690; 85025; 81025; 87088; 80053; 81001; 87186; 87491; 87591; Q0144

== ENCOUNTER 2017-07-31 10:38 | Day surgery (SDC) | payer MEDICAID ==
[~2017-07-31 10:38] MED LIST changes: -CEFAZOLIN 1 GM/D5W RTU 1 GM/50 ML RTUPB IV PRN; +DIPHENHYDRAMINE HCL 50 MG/ML VIAL ONE; +EPINEPHRINE INJ 1 MG/10 ML DISP.SYRIN ONE; +FENTANYL CITRATE INJ/PF 100 MCG/2 ML AMPUL ONE; +FLUMAZENIL INJ 0.5 MG/5 ML VIAL ONE; +GLUCAGON,HUMAN RECOMB 1 MG INJ ONE; +NALOXONE HCL INJ/PF 0.4 MG/1 ML SDV ONE; +ONDANSETRON HCL INJ/PF 4 MG/2 ML SDV ONE; -RINGERS SOLUTION,LACTATED 1,000 ML IV PRN
[2017-07-31] MEDS: MIDAZOLAM 2 MG/2 ML INJ ONE ×2 (11:12→11:16)
--- NOTE | 2017-07-31 11:33 | Operative Report ---
Operative Report DATE OF SURGERY: 07/31/17 Operative Report: The risks benefits and alternatives of the procedure explained to the patient in detail and informed consent is obtained.A GIF Olympus video scope was inserted into the patient's mouth and hypopharynx, the esophagus is identified intubated and insufflated ,the scope was then advanced through the esophagus stomach and duodenum ,retroflexion maneuver is done ,the esophagus stomach and first and second portions of the duodenum examined PREOPERATIVE DIAGNOSIS: Dysphagia POSTOPERATIVE DIAGNOSIS: Patient was not able to tolerate conscious sedation. Intubation had been done and scope was actually in the stomach, patient woke up and pulled the scope out. No further attempts were made to continue the procedure. We called the operating room to see if they may be able to accommodate with propofol sedation. Anesthesia decline OPERATION: Diagnostic EGD SURGEON: BRONWYN MENDES ANESTHESIA: Moderate Sedation - 25 mg of Benadryl, 3 mg of Versed. 75 mcg of fentanyl. Conscious sedation monitoring time 30 minutes. TISSUE REMOVED OR ALTERED: None. COMPLICATIONS: None. ESTIMATED BLOOD LOSS: None. INTRAOPERATIVE FINDINGS: In the brief time that the scope was in the stomach that did not appear to be significant ulcers. Schatzki's ring is noted. Unable to perform therapeutic procedure due to patient's pulling out of the scope PROCEDURE: Patient is not able to tolerate conscious sedation. We will need to reschedule with propofol sedation. She is discharged in good condition. Discharge date 07/31/2017. Discharge diet: Regular. Discharge activity: Regular. As needed follow-up. We will see the patient wants to reschedule.
[2017-07-31 12:57] VITALS: BP 113/74
== END 2017-07-31 12:20 | disposition home or self-care (01) ==
LOC: END 10:38
PROVIDERS: ATTEND Internal Medicine Gastroenterology
PROC: 0DJ08ZZ Inspection of Upper Intestinal Tract, Via Natural or Artificial Opening Endoscopic (ICD-10-PCS; principal; 2017-07-31 11:30)
DX: K22.2 Esophageal obstruction (principal); E78.2 Mixed hyperlipidemia; K21.9 Gastro-esophageal reflux disease without esophagitis; Z79.899 Other long term (current) drug therapy; Z88.0 Allergy status to penicillin; Z88.6 Allergy status to analgesic agent
CPT/HCPCS: 43235; J2250; J1200; J3010; J2405; J0171; J1610; J2310; J3490

== ENCOUNTER 2017-08-14 09:25 | Emergency (ER) | payer MEDICAID ==
--- NOTE | 2017-08-14 10:17 | ER Document Report ---
HPI - HPI Patient complains to provider of: Cough since Thursday Onset: Other - Thursday Pain Level: 4 Context: 42-year-old non-smoker complaining of a cough since Thursday. She feels some postnasal drip. No chest pain or shortness of breath. No history of asthma. No fever. Associated Symptoms: None Exacerbated by: Denies Relieved by: Denies Similar symptoms previously: No Recently seen / treated by doctor: No - ROS ROS below otherwise negative: Yes Systems Reviewed and Negative: Yes All other systems reviewed and negative - CARDIOVASCULAR Cardiovascular: DENIES: Chest pain - RESPIRATORY Respiratory: REPORTS: Coughing - REPRODUCTIVE Reproductive: DENIES: : - DERM Skin Color: Normal Past Medical History - General Information source: Patient - Social History Smoking Status: Never Smoker Chew tobacco use (# tins/day): No Frequency of alcohol use: None Drug Abuse: None Lives with: Family Family History: Reviewed & Not Pertinent Patient has suicidal ideation: No Patient has homicidal ideation: No Renal/ Medical History: Denies: Hx Peritoneal Dialysis GI Medical History: Reports: Hx Gastroesophageal Reflux Disease, Hx Hiatal Hernia Past Surgical History: Reports: Hx Orthopedic Surgery - R big and small toe, carpel tunnel bilaterally, Hx Tonsillectomy, Hx Tubal Ligation - Immunizations Immunizations up to date: Yes Hx Diphtheria, Pertussis, Tetanus Vaccination: Yes Vertical Provider Document - CONSTITUTIONAL Agree With Documented VS: Yes Exam Limitations: No Limitations - INFECTION CONTROL TRAVEL OUTSIDE OF THE [place] IN LAST 30 DAYS: No - HEENT HEENT: Normocephalic, Pharyngeal Erythema - mild. negative: Conjuctival Injection, Tympanic Membrane Red, Tympanic Membrane Bulging - NECK Neck: Supple. negative: Lymphadenopathy-Left, Lymphadenopathy-Right - RESPIRATORY Respiratory: Breath Sounds Normal, No Respiratory Distress O2 Sat by Pulse Oximetry: 100 - CARDIOVASCULAR Cardiovascular: Regular Rate, Regular Rhythm - GI/ABDOMEN Gastrointestinal: Abdomen Soft, Abdomen Non-Tender, No Organomegaly - NEURO Level of Consciousness: Awake, Alert, Appropriate Motor/Sensory: No Motor Deficit, No Sensory Deficit - DERM Integumentary: Warm, Dry, No Rash Course - Re-evaluation Re-evalutation: 08/14/17 19:42 late entry- I looked at films and radiology interpretation was done prior to discharge Chest x-ray is negative - Vital Signs Vital signs: Temp Pulse Resp BP Pulse Ox 98.8 F 80 20 132/72 H 100 08/14/17 09:41 08/14/17 09:41 08/14/17 09:41 08/14/17 09:41 08/14/17 09:41 Discharge - Discharge Clinical Impression: Upper respiratory infection Qualifiers: URI type: unspecified viral URI Qualified Code(s): J06.9 - Acute upper respiratory infection, unspecified Condition: Good Disposition: HOME, SELF-CARE Instructions: Acetaminophen, Use of Bhya-Hzp-Ynavass Ibuprofen ([facility]), Upper Respiratory Illness ([facility]) Additional Instructions: plenty of fluids cool mist humidifier to er if worse see your doctor for follow up antihistamines may help over the counter Please complete the patient satisfaction survey if you get one, and return it.. If you do not receive a survey, then you can go to the [facility] website, [email or web address] and place your comments about your very good care. Thank you very much. It was a pleasure being your medical provider today. Prescriptions: Hydrocodone Bit/Homatropine [Hycodan Syrup 5-1.5 mg/5 ml Ud Cup] 5 ml PO Q6HP PRN #90 ml PRN Reason: Referrals: KIRK MARIE DO [Primary Care Provider] - Follow up as needed
--- NOTE | 2017-08-14 10:51 | RADIOLOGY REPORT (SQ) ---
EXAM DESCRIPTION: CHEST PA/LAT COMPLETED DATE/TIME: 08/14/2017 10:40 am REASON FOR STUDY: cough COMPARISON: 11/01/2014 EXAM PARAMETERS: NUMBER OF VIEWS: two views TECHNIQUE: Digital Frontal and Lateral radiographic views of the chest acquired. RADIATION DOSE: NA LIMITATIONS: none FINDINGS: LUNGS AND PLEURA: No opacities, masses or pneumothorax. No pleural effusion. MEDIASTINUM AND HILAR STRUCTURES: No masses or contour abnormalities. HEART AND VASCULAR STRUCTURES: Heart normal size. No evidence for failure. BONES: No acute findings. HARDWARE: None in the chest. OTHER: No other significant finding. IMPRESSION: NO SIGNIFICANT RADIOGRAPHIC FINDING IN THE CHEST. TECHNICAL DOCUMENTATION: JOB ID: [id number] [employer]- All Rights Reserved
[2017-08-14 11:38] VITALS: BP 138/62
== END 2017-08-14 11:38 | disposition home or self-care (01) ==
LOC: ER 09:25
DX: J06.9 Acute upper respiratory infection, unspecified (principal); B97.89 Other viral agents as the cause of diseases classified elsewhere; R05 Cough; R09.82 Postnasal drip
CPT/HCPCS: 71020; 99283

== ENCOUNTER 2017-08-24 08:31 | Day surgery (SDC) | payer MEDICAID ==
[~2017-08-24 08:31] MED LIST changes: -DIPHENHYDRAMINE HCL 50 MG/ML VIAL ONE; -EPINEPHRINE INJ 1 MG/10 ML DISP.SYRIN ONE; -FENTANYL CITRATE INJ/PF 100 MCG/2 ML AMPUL ONE; -FLUMAZENIL INJ 0.5 MG/5 ML VIAL ONE; -GLUCAGON,HUMAN RECOMB 1 MG INJ ONE; -NALOXONE HCL INJ/PF 0.4 MG/1 ML SDV ONE; -ONDANSETRON HCL INJ/PF 4 MG/2 ML SDV ONE; +PROPOFOL INJ 200 MG/20 ML VIAL IV ONE
[2017-08-24] MEDS ORDERED: ACETAMINOPHEN 325 MG TABLET ONE (10:11)
[2017-08-24 10:59] VITALS: BP 136/71
--- NOTE | 2017-08-24 13:16 | Operative Report ---
Operative Report DATE OF SURGERY: 08/24/17 Operative Report: The risks benefits and alternatives of the procedure explained to the patient in detail and informed consent is obtained.A GIF Olympus video scope was inserted into the patient's mouth and hypopharynx, the esophagus is identified intubated and insufflated, the scope was then advanced through the esophagus stomach and duodenum, retroflexion maneuver is done, the esophagus stomach and first and second portions of the duodenum examined PREOPERATIVE DIAGNOSIS: Nausea vomiting POSTOPERATIVE DIAGNOSIS: Gastritis, duodenitis; biopsies obtained to rule out for Helicobacter pylori OPERATION: EGD with biopsy SURGEON: BRONWYN MENDES ANESTHESIA: LMAC TISSUE REMOVED OR ALTERED: Gastric mucosal specimens obtained to rule out Helicobacter pylori COMPLICATIONS: None. ESTIMATED BLOOD LOSS: None. INTRAOPERATIVE FINDINGS: As noted above. PROCEDURE: Patient tolerated procedure well. No immediate postprocedure complications are noted. Patient discharged in good condition. Discharge date 08/24/2017. Discharge diet: Regular. Discharge activity: Regular. 2-3 week follow-up to discuss findings. Patient is instructed to call the office or proceed to the emergency room should there be any further problems or questions. We will wait on pathology.
== END 2017-08-24 10:50 | disposition home or self-care (01) ==
LOC: END 08:31
PROVIDERS: ATTEND Internal Medicine Gastroenterology
PROC: 0DB68ZX Excision of Stomach, Via Natural or Artificial Opening Endoscopic, Diagnostic (ICD-10-PCS; principal; 2017-08-24 10:00)
DX: K29.70 Gastritis, unspecified, without bleeding (principal); K29.80 Duodenitis without bleeding
CPT/HCPCS: 43239; 88305 ×2; J3490; J2704; 740

== ENCOUNTER → 2017-09-23 | Outpatient (CLI) | payer MEDICAID ==
--- NOTE | 2017-09-23 12:43 | RADIOLOGY REPORT (SQ) ---
EXAM DESCRIPTION: FOOT RIGHT COMPLETE COMPLETED DATE/TIME: 09/23/2017 11:15 am REASON FOR STUDY: OTHER SPECIFIED POSTPROCEDURAL STATES Z98.890 OTHER SPECIFIED POSTPROCEDURAL STAT ES COMPARISON: None. NUMBER OF VIEWS: Three views. TECHNIQUE: AP, lateral and oblique radiographic images acquired of the right foot. LIMITATIONS: None. FINDINGS: MINERALIZATION: Normal. BONES: There are surgical changes involving the head of the 1st metatarsal and base of the 1st proxim al phalanx with a joint implant. No acute osseous or joint abnormality is seen JOINTS: No effusions. SOFT TISSUES: No soft tissue swelling. No foreign body. OTHER: No other significant finding. IMPRESSION: Surgical changes in the 1st metatarsal-phalangeal joint. TECHNICAL DOCUMENTATION: JOB ID: [id number] [employer]- All Rights Reserved
== END ==
LOC: OD 10:07
PROVIDERS: ATTEND Podiatrist Foot & Ankle Surgery
DX: Z98.890 Other specified postprocedural states (principal)

== ENCOUNTER → 2017-09-25 | Outpatient (CLI) | payer MEDICAID ==
--- NOTE | 2017-09-25 13:33 | RADIOLOGY REPORT (SQ) ---
EXAM DESCRIPTION: FOOT RIGHT COMPLETE COMPLETED DATE/TIME: 09/25/2017 12:48 pm REASON FOR STUDY: OTHER SPECIFIED POSTPROCEDURAL STATES Z98.890 OTHER SPECIFIED POSTPROCEDURAL STAT ES COMPARISON: None. NUMBER OF VIEWS: Three views. TECHNIQUE: AP, lateral and oblique weight-bearing radiographic images acquired of the right foot. LIMITATIONS: None. FINDINGS: MINERALIZATION: Normal. BONES: No acute fracture or dislocation. No worrisome bone lesions. JOINTS: Surgical changes with implant at the 1st metatarsophalangeal joint. SOFT TISSUES: No soft tissue swelling. No foreign body. OTHER: No other significant finding. IMPRESSION: Surgical changes with no acute abnormality. TECHNICAL DOCUMENTATION: JOB ID: [id number] [employer]- All Rights Reserved
== END ==
LOC: OD 12:27
PROVIDERS: ATTEND Podiatrist Foot & Ankle Surgery
DX: Z98.890 Other specified postprocedural states (principal)

== ENCOUNTER → 2018-02-11 | Outpatient (CLI) | payer MEDICAID ==
--- NOTE | 2018-02-11 11:51 | RADIOLOGY REPORT (SQ) ---
EXAM DESCRIPTION: FOOT LEFT COMPLETE COMPLETED DATE/TIME: 02/11/2018 9:59 am REASON FOR STUDY: HALLUX RIGIDUS, LEFT FOOT M20.22 HALLUX RIGIDUS, LEFT FOOT COMPARISON: None. NUMBER OF VIEWS: Three views. TECHNIQUE: AP, lateral and oblique with weight bearing radiographic images acquired of the left foot . LIMITATIONS: None. FINDINGS: MINERALIZATION: Normal. BONES: No acute fracture or dislocation. No worrisome bone lesions. No significant osteophytes. JOINTS: No erosions. No fe-articular osteopenia. No chondrocalcinosis. SOFT TISSUES: No swelling. No calcifications. OTHER: No other significant finding. IMPRESSION: NEGATIVE STUDY OF THE LEFT FOOT. NO EXPLANATION FOR PAIN. TECHNICAL DOCUMENTATION: JOB ID: [id number] [employer]- All Rights Reserved Reading location - IP/workstation name: [email or web address]
== END ==
LOC: OD 09:45
PROVIDERS: ATTEND Podiatrist Foot & Ankle Surgery
DX: M20.22 Hallux rigidus, left foot (principal)

== ENCOUNTER → 2018-03-31 | Outpatient (CLI) | payer MEDICAID ==
--- NOTE | 2018-03-31 13:02 | RADIOLOGY REPORT (SQ) ---
EXAM DESCRIPTION: FOOT RIGHT COMPLETE COMPLETED DATE/TIME: 03/31/2018 12:38 pm REASON FOR STUDY: HALLUX RIGIDUS, RIGHT FOOT COMPARISON: 2017. NUMBER OF VIEWS: Three views of the right foot, weight-bearing. LIMITATIONS: None. FINDINGS: Normal bone density. Status post arthroplasty great toe MP joint, similar appearance comp ared to prior. No subluxation or dislocation here or elsewhere. Old 5th metatarsal neck fracture, h ealed. OTHER: No other significant finding. IMPRESSION: Chronic changes including previous arthroplasty great toe MP joint. No acute or suspici ous findings. TECHNICAL DOCUMENTATION: JOB ID: [id number] Reading location - IP/workstation name: [email or web address]
== END ==
LOC: OD 12:10
PROVIDERS: ATTEND Podiatrist Foot & Ankle Surgery
DX: M20.21 Hallux rigidus, right foot (principal)

== ENCOUNTER 2018-04-30 09:01 | Emergency (ER) | payer MEDICAID ==
[2018-04-30] MEDS ORDERED: ACETAMINOPHEN 325 MG TABLET PO ONE (09:36)
--- NOTE | 2018-04-30 10:44 | RADIOLOGY REPORT (SQ) ---
EXAM DESCRIPTION: TIBIA FIBULA RIGHT COMPLETED DATE/TIME: 04/30/2018 10:14 am REASON FOR STUDY: struck by toy, RLE pain no open wound COMPARISON: None. NUMBER OF VIEWS: Two views. TECHNIQUE: Two radiographic images acquired of the right tibia and fibula to include the knee and an kle in at least one projection. LIMITATIONS: None. FINDINGS: MINERALIZATION: Normal. BONES: No acute fracture or dislocation. No worrisome bone lesions. SOFT TISSUES: No obvious swelling or foreign body. OTHER: No other significant finding. IMPRESSION: No acute fracture. No radiopaque foreign body or soft tissue gas TECHNICAL DOCUMENTATION: JOB ID: [id number] [employer]- All Rights Reserved Reading location - IP/workstation name: [email or web address]
[2018-04-30] MEDS ORDERED: LIDOCAINE 5% (700 MG) TRANSDERMAL ADH..PATCH TP ONE (10:54)
--- NOTE | 2018-04-30 10:55 | ER Document Report ---
HPI - HPI Patient complains to provider of: Right leg pain Onset: Other - 2 days ago Onset/Duration: Persistent Quality of pain: Achy Pain Level: 4 Context: Patient states she was struck in the right lower leg with a toy train 2 days ago. Patient complains of leg swelling and persistent pain since then. Patient also has a sensation like a insect may be in her ear. Patient denies any fever. Associated Symptoms: Other - Ear discomfort, right leg pain. denies: Fever, Headache Exacerbated by: Movement Relieved by: Denies Similar symptoms previously: No Recently seen / treated by doctor: No - ROS ROS below otherwise negative: Yes Systems Reviewed and Negative: Yes All other systems reviewed and negative - EENT EENT: REPORTS: Ear Pain - GASTROINTESTINAL Gastrointestinal: DENIES: Nausea - REPRODUCTIVE Reproductive: DENIES: : - MUSCULOSKELETAL Musculoskeletal: REPORTS: Extremity pain - leg. DENIES: Back Pain - DERM Skin Color: Normal Past Medical History - General Information source: Patient - Social History Smoking Status: Never Smoker Frequency of alcohol use: None Drug Abuse: None Occupation: None Lives with: Family Family History: Reviewed & Not Pertinent Patient has suicidal ideation: No Patient has homicidal ideation: No - Past Medical History Cardiac Medical History: Denies: Hx Coronary Artery Disease, Hx Heart Attack, Hx Hypertension Pulmonary Medical History: Denies: Hx Asthma, Hx Bronchitis, Hx COPD, Hx Pneumonia Neurological Medical History: Denies: Hx Cerebrovascular Accident, Hx Seizures Renal/ Medical History: Denies: Hx Peritoneal Dialysis GI Medical History: Reports: Hx Gastroesophageal Reflux Disease, Hx Hiatal Hernia. Denies: Hx Hepatitis, Hx Ulcer Musculoskeltal Medical History: Denies Hx Arthritis Infectious Medical History: Denies: Hx Hepatitis Past Surgical History: Reports: Hx Orthopedic Surgery - R big and small toe, carpel tunnel bilaterally, Hx Tonsillectomy, Hx Tubal Ligation. Denies: Hx Hysterectomy, Hx Mastectomy, Hx Open Heart Surgery, Hx Pacemaker - Immunizations Immunizations up to date: Yes Hx Diphtheria, Pertussis, Tetanus Vaccination: Yes Vertical Provider Document - CONSTITUTIONAL Agree With Documented VS: Yes Exam Limitations: No Limitations General Appearance: WD/WN, No Apparent Distress - INFECTION CONTROL TRAVEL OUTSIDE OF THE [place] IN LAST 30 DAYS: No - HEENT HEENT: Atraumatic, Normal ENT Exam, Normocephalic - NECK Neck: Normal Inspection, Supple. negative: Lymphadenopathy-Left, Lymphadenopathy-Right - RESPIRATORY Respiratory: Breath Sounds Normal, No Respiratory Distress - CARDIOVASCULAR Cardiovascular: Regular Rate, Regular Rhythm Pulses: Normal: Posterior tibial - MUSCULOSKELETAL/EXTREMETIES Musculoskeletal/Extremeties: MAEW, FROM, Tender - Tenderness to distal third of right lower extremity with tender, swollen area., Edema - NEURO Level of Consciousness: Awake, Alert, Appropriate Motor/Sensory: No Motor Deficit - DERM Integumentary: Warm, Dry, No Rash Course - Vital Signs Vital signs: Temp Pulse Resp BP Pulse Ox 98.6 F 69 16 126/87 H 100 04/30/18 09:07 04/30/18 09:07 04/30/18 09:07 04/30/18 09:07 04/30/18 09:07 - Diagnostic Test Radiology reviewed: Reports reviewed Discharge - Discharge Clinical Impression: Contusion Qualifiers: Encounter type: initial encounter Contusion area: lower leg Laterality: right Qualified Code(s): S80.11XA - Contusion of right lower leg, initial encounter Leg pain Qualifiers: Laterality: right Qualified Code(s): M79.604 - Pain in right leg Condition: Stable Disposition: HOME, SELF-CARE Instructions: Contusion ([facility]), Ice & Elevation ([facility]) Additional Instructions: Return immediately for any new or worsening symptoms Followup with your primary care provider, call tomorrow to make a followup appointment Prescriptions: Acetaminophen with Codeine [Acetaminophen-Cod #3 Tablet] 1 each PO Q6 PRN #10 tablet PRN Reason: Lidocaine [Lidoderm 5% (700 mg) Transdermal Patch] 1 patch TP DAILY PRN #7 adh..patch PRN Reason: Referrals: KRIK MARIE DO [Primary Care Provider] - Follow up as needed [facility] [Provider Group] - Follow up as needed
[2018-04-30 11:30] VITALS: BP 121/69
== END 2018-04-30 11:30 | disposition home or self-care (01) ==
LOC: ER 09:01
DX: S80.11XA Contusion of right lower leg, initial encounter (principal); W22.8XXA Striking against or struck by other objects, initial encounter; R68.89 Other general symptoms and signs
CPT/HCPCS: 99283; 73590; J3490

== ENCOUNTER → 2018-05-20 | Outpatient (CLI) | payer MEDICAID ==
--- NOTE | 2018-05-20 12:00 | RADIOLOGY REPORT (SQ) ---
EXAM DESCRIPTION: KNEE LEFT 4 VIEWS; KNEE RIGHT 4 VIEWS COMPLETED DATE/TIME: 05/20/2018 11:27 am REASON FOR STUDY: CHRONIC PAIN OF BOTH KNEES; CHRONIC DENY LBP WITHOUT SCIATICA COMPARISON: None. FINDINGS: Four views right knee: No bone, joint or soft tissue abnormality. Four views left knee: No bone, joint or soft tissue abnormality. IMPRESSION: Bilateral normal knee radiographs. TECHNICAL DOCUMENTATION: JOB ID: [id number] Reading location - IP/workstation name: [facility]
--- NOTE | 2018-05-20 12:00 | RADIOLOGY REPORT (SQ) ---
EXAM DESCRIPTION: KNEE LEFT 4 VIEWS; KNEE RIGHT 4 VIEWS COMPLETED DATE/TIME: 05/20/2018 11:27 am REASON FOR STUDY: CHRONIC PAIN OF BOTH KNEES; CHRONIC DENY LBP WITHOUT SCIATICA COMPARISON: None. FINDINGS: Four views right knee: No bone, joint or soft tissue abnormality. Four views left knee: No bone, joint or soft tissue abnormality. IMPRESSION: Bilateral normal knee radiographs. TECHNICAL DOCUMENTATION: JOB ID: [id number] Reading location - IP/workstation name: [facility]
--- NOTE | 2018-05-20 13:15 | RADIOLOGY REPORT (SQ) ---
EXAM DESCRIPTION: LUMBAR SPINE COMPLETE COMPLETED DATE/TIME: 05/20/2018 11:27 am REASON FOR STUDY: CHRONIC PAIN OF BOTH KNEES; CHRONIC DENY LBP WITHOUT SCIATICA COMPARISON: None. NUMBER OF VIEWS: Five views including obliques. TECHNIQUE: AP, lateral, oblique, and sacral radiographic images acquired of the lumbar spine. LIMITATIONS: None. FINDINGS: MINERALIZATION: Normal. SEGMENTATION: Normal. No transitional anatomy. ALIGNMENT: Normal. VERTEBRAE: Maintained height. No fracture or worrisome bone lesion. DISCS: Preserved height. No significant osteophytes or end plate irregularity. POSTERIOR ELEMENTS: Pedicles and facets are intact. No pars defect or posterior arch defects. HARDWARE: BTL clips. PARASPINAL SOFT TISSUES: Normal. PELVIS: Intact as visualized. No fractures or worrisome bone lesions. SI joints intact. OTHER: No other significant finding. IMPRESSION: NORMAL 5 VIEW LUMBAR SPINE. TECHNICAL DOCUMENTATION: JOB ID: [id number] [employer]- All Rights Reserved Reading location - IP/workstation name: [email or web address]
== END ==
LOC: OD 10:41
PROVIDERS: ATTEND Family Medicine
DX: M54.5 Low back pain (principal); M25.562 Pain in left knee; M25.561 Pain in right knee
CPT/HCPCS: 72110

== ENCOUNTER → 2018-06-04 | Outpatient (CLI) | payer MEDICAID, OTHER ==
--- NOTE | 2018-06-04 12:04 | RADIOLOGY REPORT (SQ) ---
EXAM DESCRIPTION: U/S ABDOMEN COMPLETE W/O DOP COMPLETED DATE/TIME: 06/04/2018 9:25 am REASON FOR STUDY: RUQ PAIN R10.11 RIGHT UPPER QUADRANT PAIN COMPARISON: 06/29/2015 TECHNIQUE: Dynamic and static grayscale images acquired of the abdomen and recorded on PACS. Additio zhang selected color Doppler and spectral images recorded. LIMITATIONS: None. FINDINGS: PANCREAS: No masses. Visualized pancreatic duct normal caliber. LIVER: 13.5 cm. Normal echotexture. LIVER VASCULATURE: Normal directional flow of the main portal vein and hepatic veins. GALLBLADDER: No stones. Normal wall thickness. No pericholecystic fluid. ULTRASOUND-DETECTED ZHOU'S SIGN: Negative. INTRAHEPATIC DUCTS AND COMMON DUCT: CBD and intrahepatic ducts normal caliber. No filling defects. INFERIOR VENA CAVA: Patent. AORTA: No aneurysm. RIGHT KIDNEY: Normal size, 9.8 cm. Normal echogenicity. No solid or suspicious masses. No hydr onephrosis. No calcifications. LEFT KIDNEY: Normal size, 9.2 cm. Normal echogenicity. No solid or suspicious masses. No hydro nephrosis. No calcifications. SPLEEN: Normal size, 6.6 cm. No solid masses. PERITONEAL AND PLEURAL SPACES: No ascites or effusions. OTHER: No other significant finding. IMPRESSION: NORMAL ABDOMINAL ULTRASOUND. TECHNICAL DOCUMENTATION: JOB ID: [id number] [employer]- All Rights Reserved Reading location - IP/workstation name: [email or web address]
== END ==
LOC: RAD 08:38
PROVIDERS: ATTEND Internal Medicine Gastroenterology
DX: R10.11 Right upper quadrant pain (principal)
CPT/HCPCS: 76700

== ENCOUNTER 2018-06-07 08:56 | Day surgery (SDC) | payer MEDICAID ==
[2018-06-07] MEDS ORDERED: PROPOFOL INJ 200 MG/20 ML VIAL IV ONE (10:09)
[2018-06-07 10:49] VITALS: BP 125/76
--- NOTE | 2018-06-07 12:12 | Operative Report ---
Operative Report DATE OF SURGERY: 06/07/18 Operative Report: The risks benefits and alternatives of the procedure explained to the patient in detail and informed consent is obtained,A GIF Olympus video scope was inserted into the patient's mouth and hypopharynx, the esophagus is identified intubated and insufflated ,the scope was then advanced through the esophagus stomach and duodenum, retroflexion maneuver is done, the esophagus stomach and first and second portions of the duodenum examined PREOPERATIVE DIAGNOSIS: Dysphagia, previous history of Schatzki's ring that was broken but still having symptoms now for balloon dilation POSTOPERATIVE DIAGNOSIS: 18 mm device used for dilation OPERATION: EGD with dilation. EGD with biopsy SURGEON: BRONWYN MENDES ANESTHESIA: LMAC TISSUE REMOVED OR ALTERED: Gastritis status post biopsy rule out Helicobacter pylori COMPLICATIONS: None. ESTIMATED BLOOD LOSS: None. INTRAOPERATIVE FINDINGS: As noted above. PROCEDURE: Patient tolerated the procedure well. No immediate postprocedure complications are noted. Patient discharged in good condition. Discharge date 06/07/2018. Discharge diet: Regular. Discharge activity: Regular. 2-3 week follow-up to discuss findings. We will wait on pathology.
--- NOTE | 2018-06-07 14:20 | Progress Note ---
Provider Note Provider Note: patient had undergone EGD earlier this am she had dysphagia and had dilation done with 18mm bougie device states has epigastric pain able to swallow and tolerating fluids, no SOB patient advised to take some Tylenol for now if no better will need to go to ED patient to call back the office periodically to keep us informed
--- NOTE | 2018-06-07 18:47 | Progress Note ---
Provider Note Provider Note: patient had been advised to go to ED spoke with ED physician initial VSS EKG did not indicated an acute cardiac event chest x ray negative for pneumothorax or esophageal perforation. as noted patient had dilation of esophagus with 18F bougie over a guidewire awaiting for chest CT patient currently stable in ED waiting on further testing
== END 2018-06-07 10:45 | disposition home or self-care (01) ==
LOC: END 08:56
PROVIDERS: ATTEND Internal Medicine Gastroenterology
DX: K29.50 Unspecified chronic gastritis without bleeding (principal); K22.2 Esophageal obstruction; K21.9 Gastro-esophageal reflux disease without esophagitis; E78.2 Mixed hyperlipidemia; Z79.899 Other long term (current) drug therapy; Z88.0 Allergy status to penicillin; Z88.8 Allergy status to other drugs, medicaments and biological substances; Z88.6 Allergy status to analgesic agent
CPT/HCPCS: 43239; 43248; 88342 ×2; 88305 ×2; J2704; 731

== ENCOUNTER 2018-06-07 14:49 | Emergency (ER) | payer MEDICAID ==
--- NOTE | 2018-06-07 16:00 | ER Document Report ---
ED Medical Screen (RME) - General Chief Complaint: Chest Pain Stated Complaint: CHEST PAIN Time Seen by Provider: 06/07/18 15:56 Notes: 43-year-old female who was sent from [facility] for chest pain and shortness of breath. The patient had an EGD with dilatation this morning for strictures. This was done by Dr. Mendes. The patient was discharged and went home and began having chest pain and trouble breathing. The patient contacted GI who sent her here. Dr. Mendes called ahead. His concern was to get an x-ray and some general lab work mainly an x-ray to assess for any kind of perforation or further imaging if needed. Complains of a lot of pressure in her chest and epigastrium. Describes a severe complaint of shortness of breath with it. TRAVEL OUTSIDE OF THE [place] IN LAST 30 DAYS: No - Related Data Allergies/Adverse Reactions: Penicillins Allergy (Mild, Verified 06/07/18 09:21) Unknown reaction NSAIDS (Non-Steroidal Anti-Inflamma [Nsaids] Adverse Reaction (Mild, Verified 09:21) stomach upset Past Medical History - Past Medical History Cardiac Medical History: Denies: Hx Coronary Artery Disease, Hx Heart Attack, Hx Hypertension Pulmonary Medical History: Denies: Hx Asthma, Hx Bronchitis, Hx COPD, Hx Pneumonia Neurological Medical History: Denies: Hx Cerebrovascular Accident, Hx Seizures Renal/ Medical History: Denies: Hx Peritoneal Dialysis GI Medical History: Reports: Hx Gastroesophageal Reflux Disease, Hx Hiatal Hernia. Denies: Hx Hepatitis, Hx Ulcer Musculoskeltal Medical History: Denies Hx Arthritis Infectious Medical History: Denies: Hx Hepatitis Past Surgical History: Reports: Hx Orthopedic Surgery - R big and small toe, carpel tunnel bilaterally, Hx Tonsillectomy, Hx Tubal Ligation. Denies: Hx Hysterectomy, Hx Mastectomy, Hx Open Heart Surgery, Hx Pacemaker - Immunizations Immunizations up to date: Yes Hx Diphtheria, Pertussis, Tetanus Vaccination: Yes Physical Exam - Vital signs Vitals: Temp Pulse Resp BP Pulse Ox 98 F 84 20 127/57 H 100 06/07/18 14:58 06/07/18 14:58 06/07/18 14:58 06/07/18 14:58 06/07/18 14:58 - Notes Notes: Lung sounds are clear and equal cardiovascular regular rate and rhythm abdomen has some mild epigastric discomfort no rebound or guarding is noted Course - Re-evaluation Re-evalutation: 06/07/18 16:00 Triage Plan - The patient will have a chest x-ray to evaluate for esophageal perforation. CT may be needed. Will check some generalized blood work EKG. - Vital Signs Vital signs: Temp Pulse Resp BP Pulse Ox 98 F 84 20 127/57 H 100 06/07/18 14:58 06/07/18 14:58 06/07/18 14:58 06/07/18 14:58 06/07/18 14:58 Doctor's Discharge - Discharge Referrals: BRONWYN MENDES MD [Primary Care Provider] - Follow up as needed
--- NOTE | 2018-06-07 16:29 | RADIOLOGY REPORT (SQ) ---
EXAM DESCRIPTION: CHEST 2 VIEWS COMPLETED DATE/TIME: 06/07/2018 4:19 pm REASON FOR STUDY: chest pain sob COMPARISON: None. EXAM PARAMETERS: NUMBER OF VIEWS: two views TECHNIQUE: Digital Frontal and Lateral radiographic views of the chest acquired. RADIATION DOSE: NA LIMITATIONS: Battery pack obscuring left hilum. Poor inspiratory effort on the frontal view. FINDINGS: LUNGS AND PLEURA: No opacities, masses or pneumothorax. No pleural effusion. MEDIASTINUM AND HILAR STRUCTURES: No masses or contour abnormalities. HEART AND VASCULAR STRUCTURES: Heart normal size. No evidence for failure. BONES: No acute findings. HARDWARE: Battery pack left. OTHER: No other significant finding. IMPRESSION: NO ACUTE RADIOGRAPHIC FINDING IN THE CHEST. TECHNICAL DOCUMENTATION: JOB ID: [id number] [employer]- All Rights Reserved Reading location - IP/workstation name: [email or web address]
[2018-06-07 17:06] LABS: ABSOLUTE LYMPHOCYTES (AUTO) 1.4 10^3/uL (0.5-4.7); ABSOLUTE MONOCYTES (AUTO) 0.6 10^3/uL (0.1-1.4); ABSOLUTE NEUT (AUTO) 10.2 10^3/uL (1.7-8.2); BASOPHILS % (AUTO) 0.4 % (0-2); EOSINOPHILS % (AUTO) 0.2 % (0-6); HEMATOCRIT 39.3 % (36.0-47.0); LYMPHOCYTES % (AUTO) 11.6 % (13-45); MEAN CORPUSCULAR HEMOGLOBIN 30.3 pg (27.0-33.4); MEAN CORPUSCULAR HGB CONC 33.2 g/dL (32.0-36.0); MEAN CORPUSCULAR VOLUME 91 fl (80-97); MONOCYTES % (AUTO) 5.1 % (3-13); PLATELET COUNT 315 10^3/uL (150-450); SEGMENTED NEUTROPHILS % (AUTO) 82.7 % (42-78); TOTAL CELLS COUNTED % (AUTO) 100 %; WHITE BLOOD COUNT 12.3 10^3/uL (4.0-10.5)
[2018-06-07 17:24] LABS: ANION GAP 14 (5-19); BLOOD UREA NITROGEN 10 mg/dL (7-20); CALCIUM 10.4 mg/dL (8.4-10.2); CARBON DIOXIDE 24 mmol/L (22-30); CHLORIDE 106 mmol/L (98-107); GLUCOSE 118 mg/dL (75-110); POTASSIUM 4.5 mmol/L (3.6-5.0); SODIUM 143.5 mmol/L (137-145)
[2018-06-07] MEDS ORDERED: MORPHINE SULFATE 10 MG/ML INJ IV ONE (18:31)
[2018-06-07] MEDS ORDERED: ONDANSETRON HCL INJ/PF 4 MG/2 ML SDV IV ONE (18:31)
--- NOTE | 2018-06-07 18:39 | ER Document Report ---
ED General - General Chief Complaint: Chest Pain Stated Complaint: CHEST PAIN Time Seen by Provider: 06/07/18 15:56 TRAVEL OUTSIDE OF THE [place] IN LAST 30 DAYS: No - HPI Notes: 43-year-old female presents with severe upper abdominal pain, chest pain, back pain, and shortness of breath that started after an EGD this morning. She had an EGD by Dr. Mendes with esophageal dilation and gastric biopsies for H. pylori. She has a history of Schatzki's ring. She is followed by cardiology for palpitations and chest pain and has an event monitor in place. She took Tylenol without improvement. She had an abdominal ultrasound for right upper quadrant pain on the that was normal. She states that the pain currently is different from her prior episodes of chest abdominal pain. Denies any vomiting or fever. - Related Data Allergies/Adverse Reactions: Penicillins Allergy (Mild, Verified 06/07/18 09:21) Unknown reaction NSAIDS (Non-Steroidal Anti-Inflamma [Nsaids] Adverse Reaction (Mild, Verified 09:21) stomach upset Past Medical History - Social History Smoking Status: Never Smoker Chew tobacco use (# tins/day): No Drug Abuse: None Family History: Reviewed & Not Pertinent Patient has suicidal ideation: No Patient has homicidal ideation: No - Past Medical History Cardiac Medical History: Denies: Hx Coronary Artery Disease, Hx Heart Attack, Hx Hypertension Pulmonary Medical History: Denies: Hx Asthma, Hx Bronchitis, Hx COPD, Hx Pneumonia Neurological Medical History: Denies: Hx Cerebrovascular Accident, Hx Seizures Renal/ Medical History: Denies: Hx Peritoneal Dialysis GI Medical History: Reports: Hx Gastroesophageal Reflux Disease, Hx Hiatal Hernia. Denies: Hx Hepatitis, Hx Ulcer Musculoskeletal Medical History: Denies Hx Arthritis Infectious Medical History: Denies: Hx Hepatitis Past Surgical History: Reports: Hx Orthopedic Surgery - R big and small toe, carpel tunnel bilaterally, Hx Tonsillectomy, Hx Tubal Ligation. Denies: Hx Hysterectomy, Hx Mastectomy, Hx Open Heart Surgery, Hx Pacemaker - Immunizations Immunizations up to date: Yes Hx Diphtheria, Pertussis, Tetanus Vaccination: Yes Review of Systems - Review of Systems Notes: Constitutional: Negative for fever. HENT: Negative for sore throat. Eyes: Negative for visual changes. Cardiovascular: Positive for chest pain. Respiratory: Positive for shortness of breath. Gastrointestinal: Positive for abdominal pain, negative for vomiting or diarrhea. Genitourinary: Negative for dysuria. Musculoskeletal: Positive for back pain. Skin: Negative for rash. Neurological: Negative for headaches, weakness or numbness. 10 point ROS negative except as marked above and in HPI. Physical Exam - Vital signs Vitals: Temp Pulse Resp BP Pulse Ox 98 F 84 20 127/57 H 100 06/07/18 14:58 06/07/18 14:58 06/07/18 14:58 06/07/18 14:58 06/07/18 14:58 - Notes Notes: PHYSICAL EXAMINATION: GENERAL: Well-appearing, well-nourished and in no acute distress. HEAD: Atraumatic, normocephalic. EYES: Pupils equal round and reactive to light, extraocular movements intact, conjunctiva are normal. ENT: nares patent, oropharynx clear without exudates. Moist mucous membranes. NECK: Normal range of motion, supple without lymphadenopathy LUNGS: Breath sounds clear to auscultation bilaterally and equal. No wheezes rales or rhonchi. HEART: Regular rate and rhythm, no chest wall tenderness . No crepitus. Event recorder noted on chest wall. ABDOMEN: Soft, normoactive bowel sounds. No guarding, no rebound. No masses appreciated. Tenderness to palpation of epigastric region, right and left upper quadrants. EXTREMITIES: Normal range of motion, no pitting or edema. No cyanosis. Tenderness to palpation of thoracic back NEUROLOGICAL: Cranial nerves grossly intact. Normal speech, normal gait. Normal sensory and motor exams. PSYCH: Normal mood, normal affect. SKIN: Warm, Dry, normal turgor, no rashes or lesions noted. Course - Re-evaluation Re-evalutation: 06/07/18 18:38 X-ray unremarkable. Patient still reporting significant pain although appears comfortable. Will obtain CT for definitive evaluation of perforation. Pain treated. Mild leukocytosis. 06/07/18 20:31 CT suspicious for esophageal perforation as it shows small amount of air in the lower anterior mediastinum. Discussed with cardiovascular surgery at [facility]. She requested barium swallow, IV fluconazole, and broad-spectrum antibiotic. Images pushed to [facility] 06/07/18 23:51 Barium swallow does not show any contrast extravasation. Updated Dr. Thomas. She wanted patient transferred for at least 24 hour observation and repeat barium swallow. No indication for emergent surgery. Patient updated and appears comfortable. Patient awaiting transport. Patient stable for transfer. - Vital Signs Vital signs: Temp Pulse Resp BP Pulse Ox 99.7 F 84 20 119/59 L 100 06/07/18 20:00 06/07/18 14:58 06/07/18 23:01 06/07/18 23:01 06/07/18 23:01 - Laboratory Result Diagrams: 06/07/18 16:55 06/07/18 16:55 Laboratory results interpreted by me: 06/07/18 06/07/18 16:55 16:55 WBC 12.3 H Seg Neutrophils % 82.7 H Lymphocytes % 11.6 L Absolute Neutrophils 10.2 H Glucose 118 H Calcium 10.4 H Discharge - Discharge Clinical Impression: Esophageal perforation Condition: Stable Disposition: [facility] Referrals: BRONWYN MENDES MD [Primary Care Provider] - Follow up as needed
--- NOTE | 2018-06-07 20:09 | RADIOLOGY REPORT (SQ) ---
EXAM DESCRIPTION: CT CHEST WITH COMPLETED DATE/TIME: 06/07/2018 7:47 pm REASON FOR STUDY: Severe chest pain after EGD and dilation COMPARISON: Chest x-ray 06/07/2018 TECHNIQUE: CT scan of the chest performed using helical scanning technique with dynamic intravenous contrast injection. Images reviewed with lung, soft tissue and bone windows. Reconstructed coronal and sagittal MPR images reviewed. All images stored on PACS. All CT scanners at this facility use dose modulation, iterative reconstruction, and/or weight based d osing when appropriate to reduce radiation dose to as low as reasonably achievable (ALARA). [facility]: Dose Right [facility]: CareDose [facility]: Dose Right [facility]: Teradose 4D [facility]: DocumentCloud CONTRAST TYPE AND DOSE: contrast/concentration: Isovue 350.00 mg/ml; Total Contrast Delivered: 60.5 ml; Total Saline Delivered: 12.0 ml RENAL FUNCTION: BUN 10 creatinine 0.8 RADIATION DOSE: CT Rad equipment meets quality standard of care and radiation dose reduction techniq ues were employed. CTDIvol: 11.4 mGy. DLP: 417 mGy-cm. . LIMITATIONS: None. FINDINGS: LUNGS AND PLEURA: No opacities, nodules, masses. No pneumothorax. No effusions. HILAR AND MEDIASTINAL STRUCTURES: There appears to be a small amount of extra esophageal free air in the lower mediastinum. HEART AND VASCULAR STRUCTURES: No aneurysm or dissection. No central pulmonary emboli. No pericardi al effusion. HARDWARE: Electronic device overlies the upper left chest. UPPER ABDOMEN: No significant findings. Limited exam. THYROID AND OTHER SOFT TISSUES: No masses. No adenopathy. BONES: No significant finding. OTHER: No other significant finding. IMPRESSION: There is a small amount of extra esophageal free air in the lower mediastinum suggestive of esophageal rupture. Pertinent findings on the imaging study reported as a CRITICAL RESULT to RYAN FABIAN MD at20:03 on 06/07/2018. TECHNICAL DOCUMENTATION: JOB ID: [id number] Quality ID # [id number]: Final reports with documentation of one or more dose reduction techniques (e.g., Au tomated exposure control, adjustment of the mA and/or kV according to patient size, use of iterative reconstruction technique) 2010 [employer]- All Rights Reserved Reading location - IP/workstation name: [email or web address]
[2018-06-07] MEDS ORDERED: NORMAL SALINE 1000 ML 1,000 ML IV ONE (20:15)
[2018-06-07] MEDS ORDERED: HYDROMORPHONE HCL INJ/PF 2 MG/ML AMPULE IV ONE (20:15)
[2018-06-07] MEDS ORDERED: IMIPENEM/CILASTATIN SODIUM INJ 500 MG VIAL IV ONE (20:26)
[2018-06-07] MEDS ORDERED: FLUCONAZOLE 400 MG/NS RTU 400 MG/200 ML RTUPB IV ONE (20:26)
--- NOTE | 2018-06-07 20:34 | EKG REPORT ---
SEVERITY:- NORMAL ECG - SINUS RHYTHM : Confirmed by: Trever Adair MD 07-Jun-2018 20:34:01
--- NOTE | 2018-06-07 22:24 | RADIOLOGY REPORT (SQ) ---
EXAM DESCRIPTION: BARIUM SWALLOW ESOPHAGUS COMPLETED DATE/TIME: 06/07/2018 10:06 pm REASON FOR STUDY: esophageal rupture COMPARISON: CT of the chest with contrast dated 06/07/2018. TECHNIQUE: Under fluoroscopic guidance, patient ingested thin barium. Fluoroscopic spot images and r outine radiographic images acquired and stored on PACS. 12 MM BARIUM TABLET GIVEN: No. LIMITATIONS: None. FLUOROSCOPY TIME: 1 minutes 16 seconds 10 images saved to PACS. FINDINGS: NEUROMUSCULAR COORDINATION OF SWALLOW: Normal. No aspiration. ESOPHAGEAL MOTILITY: Normal peristalsis. No esophageal spasm. ESOPHAGEAL MUCOSA: No extravasation. Normal mucosa without masses or ulceration. GASTRO-ESOPHAGEAL JUNCTION: Small hiatal hernia with mild reflux. NON-GI TRACT STRUCTURES: No significant finding. OTHER: No other significant finding. IMPRESSION: No evidence of contrast extravasation. Small hiatal hernia with mild reflux otherwise n ormal study. COMMENT: Quality ID 145: Final reports for procedures using fluoroscopy that document radiation exp osure indices, or exposure time and number of fluorographic images (if radiation exposure indices are not available) TECHNICAL DOCUMENTATION: JOB ID: [id number] [employer]- All Rights Reserved Reading location - IP/workstation name: [email or web address]
[2018-06-08 02:06] VITALS: BP 126/63
[2018-06-08] MEDS ORDERED: MORPHINE SULFATE 10 MG/ML INJ IV ONE (02:13)
== END 2018-06-08 02:25 | disposition short-term general hospital (02) ==
LOC: ER 14:49
DX: K22.3 Perforation of esophagus (principal); R10.10 Upper abdominal pain, unspecified; M54.9 Dorsalgia, unspecified; D72.829 Elevated white blood cell count, unspecified; R06.02 Shortness of breath; R07.9 Chest pain, unspecified; R00.2 Palpitations; Z98.890 Other specified postprocedural states; Z97.8 Presence of other specified devices; Z88.0 Allergy status to penicillin
CPT/HCPCS: 93005; 36415; 87040; 85025; 80048; 71046; 74220; 71260; 93010; J0743; J3490; J2270 ×2; J1170; J2405; J7030

== ENCOUNTER 2018-09-21 07:56 | Emergency (ER) | payer MEDICAID ==
--- NOTE | 2018-09-21 08:12 | ER Document Report ---
ED General - General Chief Complaint: Ankle Pain Stated Complaint: ANKLE PAIN Time Seen by Provider: 09/21/18 08:11 Notes: Patient is a 43-year-old female that presents to the emergency department for chief complaint of right ankle pain. Patient states she is noticed some swelling and pain in her right ankle that started yesterday, and became more painful in the evening. The pain is currently a 3 out of 10, worse to put weight on and walk on, she noticed mainly the swelling and pain on the outside of her right ankle. She has had prior surgeries to that foot, but not the ankle. She denies any numbness, tingling or weakness associated with it. Denies any other complaints at this time. Past Medical History: GERD Past Surgical History: Tubal ligation, tonsillectomy, carpal tunnel release, 6 foot surgeries Social History: Denies tobacco, alcohol or drug use Family History: Reviewed and noncontributory for presenting illness Allergies: Reviewed, see documented allergy list. REVIEW OF SYSTEMS: Other than noted above, the 12 point review of systems was reviewed with the patient and were negative, all pertinent findings are included in the HPI. PHYSICAL EXAMINATION: Vital signs reviewed, nursing noted reviewed. GENERAL: Well-appearing, well-nourished and in no acute distress. HEAD: Atraumatic, normocephalic. EYES: Eyes appear normal, extraocular movements intact, sclera anicteric, conjunctiva are normal. ENT: nares patent, oropharynx clear without exudates. Moist mucous membranes. NECK: Normal range of motion, supple without lymphadenopathy LUNGS: Breath sounds clear to auscultation bilaterally and equal. No wheezes rales or rhonchi. HEART: Regular rate and rhythm without murmurs ABDOMEN: Soft, nontender, normoactive bowel sounds. No rebound, guarding, or rigidity. No masses appreciated. EXTREMITIES: Right ankle: There is minimal lateral edema, and tenderness with palpation to the lateral malleolus, no gross deformity, there is no tenderness to palpation of the Achilles tendon, and it is intact, muscular motor strength is +5/5, range of motion with dorsi and plantar flexion does not elicit any significant pain or discomfort, she does have some discomfort with inversion of the right ankle. The rest of the patient's extremity exam is grossly unremarkable, and nontender, good range of motion, no pitting or edema. NEUROLOGICAL: No focal neurological deficits. Moves all extremities spontaneously Motor and sensory grossly intact on exam. PSYCH: Normal mood, normal affect. SKIN: Warm, Dry, normal turgor, no rashes or lesions noted on exposed skin TRAVEL OUTSIDE OF THE [place] IN LAST 30 DAYS: No - Related Data Allergies/Adverse Reactions: Penicillins Allergy (Mild, Verified 09/21/18 08:42) Unknown reaction NSAIDS (Non-Steroidal Anti-Inflamma [Nsaids] Adverse Reaction (Mild, Verified 08:42) stomach upset Past Medical History - Social History Smoking Status: Never Smoker Family History: Reviewed & Not Pertinent - Past Medical History Cardiac Medical History: Denies: Hx Coronary Artery Disease, Hx Heart Attack, Hx Hypertension Pulmonary Medical History: Denies: Hx Asthma, Hx Bronchitis, Hx COPD, Hx Pneumonia Neurological Medical History: Denies: Hx Cerebrovascular Accident, Hx Seizures Renal/ Medical History: Denies: Hx Peritoneal Dialysis GI Medical History: Reports: Hx Gastroesophageal Reflux Disease, Hx Hiatal Hernia. Denies: Hx Hepatitis, Hx Ulcer Musculoskeletal Medical History: Denies Hx Arthritis Infectious Medical History: Denies: Hx Hepatitis Past Surgical History: Reports: Hx Orthopedic Surgery - R big and small toe, carpel tunnel bilaterally, Hx Tonsillectomy, Hx Tubal Ligation. Denies: Hx Hysterectomy, Hx Mastectomy, Hx Open Heart Surgery, Hx Pacemaker - Immunizations Immunizations up to date: Yes Hx Diphtheria, Pertussis, Tetanus Vaccination: Yes Course - Re-evaluation Re-evalutation: Patient seen and examined vital signs reviewed. Imaging ordered as appropriate for the patient's presenting symptoms and complaint, with consideration of any critical or life threatening conditions that may be associated with their obtained history and exam as noted above. Patient was treated with acetaminophen 975 mg, and splinting Results were reviewed when available and demonstrated negative x-rays of the ankle The patient was re-evaluated and was stable and improved Evaluation was most consistent with ankle pain and injury Results were discussed with the patient at this point, after careful consideration I feel that that patient can be discharged from the emergency department, the patient was educated treatments and reasons to return to the emergency department based on their presumed diagnosis as noted above, they were advised to followup with a primary care physician in 2-3 days. Patient was agreeable to plan of care. *Note is created using voice recognition software and may contain spelling, syntax or grammatical errors. Ankle X-Ray 09/21/18 08:21 IMPRESSION: 1. NEGATIVE STUDY OF THE RIGHT ANKLE. Procedures - Immobilization Right Ankle Pre-Proc Neuro Vasc Exam: Normal Immobilizer type: Ankle stirrup Performed by: RN Post-Proc Neuro Vasc Exam: Normal Discharge - Discharge Clinical Impression: Ankle pain Qualifiers: Chronicity: acute Laterality: right Qualified Code(s): M25.571 - Pain in right ankle and joints of right foot Condition: Stable Disposition: HOME, SELF-CARE Instructions: Ankle Stirrup Splint ([facility]), Sprained Ankle ([facility]) Referrals: BRONWYN MENDES MD [Primary Care Provider] - Follow up in 3-5 days
[2018-09-21] MEDS ORDERED: NAPROXEN 250 MG TABLET PO ONE (08:22)
[2018-09-21] MEDS ORDERED: ACETAMINOPHEN 325 MG TABLET PO ONE (08:38)
--- NOTE | 2018-09-21 08:49 | RADIOLOGY REPORT (SQ) ---
EXAM DESCRIPTION: ANKLE RIGHT COMPLETE COMPLETED DATE/TIME: 09/21/2018 8:40 am REASON FOR STUDY: right ankle pain COMPARISON: None. NUMBER OF VIEWS: Three views. TECHNIQUE: AP, lateral, and oblique radiographic images acquired of the right ankle. LIMITATIONS: None. FINDINGS: MINERALIZATION: Normal. BONES: No acute fracture or dislocation. Small retrocalcaneal spur. JOINTS: No effusions. SOFT TISSUES: No soft tissue swelling. No foreign body. OTHER: No other significant finding. IMPRESSION: 1. NEGATIVE STUDY OF THE RIGHT ANKLE. TECHNICAL DOCUMENTATION: JOB ID: [id number] [employer]- All Rights Reserved Reading location - IP/workstation name: [email or web address]
== END 2018-09-21 10:02 | disposition home or self-care (01) ==
LOC: ER 07:56
DX: M25.571 Pain in right ankle and joints of right foot (principal); K21.9 Gastro-esophageal reflux disease without esophagitis; Z98.51 Tubal ligation status; Z88.0 Allergy status to penicillin
CPT/HCPCS: 99283; 73610; L4350; J3490

== ENCOUNTER → 2019-03-02 | Outpatient (CLI) | payer MEDICAID ==
--- NOTE | 2019-03-02 15:07 | RADIOLOGY REPORT (SQ) ---
EXAM DESCRIPTION: BARIUM SWALLOW ESOPHAGUS COMPLETED DATE/TIME: 03/02/2019 9:09 am REASON FOR STUDY: EPIGASTRIC PAIN R10.13 EPIGASTRIC PAIN COMPARISON: Barium swallow 06/07/2018. TECHNIQUE: Under fluoroscopic guidance, patient ingested effervescent granules followed by thick and thin barium. Fluoroscopic spot images and routine radiographic images acquired and stored on PACS. 12 MM BARIUM TABLET GIVEN: Barium tablet passed through esophagus without delay. LIMITATIONS: None. FLUOROSCOPY TIME: FLUORO TIME: 1.9 minutes 6 images saved to PACS. FINDINGS: NEUROMUSCULAR COORDINATION OF SWALLOW: Normal. No aspiration. ESOPHAGEAL MOTILITY: Normal peristalsis. No esophageal spasm. ESOPHAGEAL MUCOSA: Normal mucosa without masses or ulceration. GASTRO-ESOPHAGEAL JUNCTION: Small hiatal hernia. Moderate gastroesophageal reflux seen. NON-GI TRACT STRUCTURES: No significant finding. OTHER: No other significant finding. IMPRESSION: SMALL HIATAL HERNIA WITH MODERATE GASTROESOPHAGEAL REFLUX. OTHERWISE UNREMARKABLE STUDY . RECOMMENDATION: None COMMENT: None Quality ID 145: Final reports for procedures using fluoroscopy that document radiation exposure gita thomas, or exposure time and number of fluorographic images (if radiation exposure indices are not avail able) TECHNICAL DOCUMENTATION: JOB ID: [id number] [employer]- All Rights Reserved Reading location - IP/workstation name: [email or web address] [id number]
== END ==
LOC: RAD 08:20
PROVIDERS: ATTEND Internal Medicine Gastroenterology
DX: R10.13 Epigastric pain (principal)
CPT/HCPCS: 74220

== ENCOUNTER 2019-06-04 13:40 | Emergency (ER) | payer MEDICAID ==
[2019-06-04 13:45] VITALS: BP 130/70
--- NOTE | 2019-06-04 14:10 | ER Document Report ---
ED Hip Pain/Injury - General Chief Complaint: Hip Pain Stated Complaint: HAND/HIP PAIN Time Seen by Provider: 06/04/19 13:55 Primary Care Provider: BRONWYN MENDES MD [ACTIVE STAFF] - Follow up as needed KIRK CLAYTON DO [Primary Care Provider] - Follow up as needed Mode of Arrival: Ambulatory Information source: Patient Notes: 44-year-old female presents to ED for complaint of left hip and low back pain for about a year. She states is been off and on but is been gradually getting worse and it is been constant for the last several days to week. She states she seen Dr. Clayton in the past for this but is never really told her anything that was wrong. She does have a history of gastritis degenerative joint joint disease back pain and cholesterol. She has had carpal tunnel surgery on both hands has had surgery on both feet bilateral tubal ligation and tonsillectomy. She states she cannot take NSAIDs as they upset her stomach. I did offer her Toradol injection which is an NSAID but does not go to the stomach and she states she did not want it she did not like needles. Patient is alert oriented respirations regular and unlabored speaking in full sentences walks with even steady gait. TRAVEL OUTSIDE OF THE [place] IN LAST 30 DAYS: No - HPI Patient complains to provider of: Pain, Hip, Pelvis, Thigh Occurred: Other - Off and on for a year Onset/Duration: Intermittent Quality of pain: Sharp, Throbbing Severity: Moderate Pain Level: 4 Context: Other - Chronic Symptoms prior to fall: None Symptoms since fall: None Skin Color: Normal Skin Temperature: Warm Rotation of extremity: None Pain with palpation of the pelvis: No Associated Symptoms: denies: Loss of control/bowel, Loss of control/bladder, Motor loss, Sensory loss - Related Data Allergies/Adverse Reactions: Penicillins Allergy (Mild, Verified 06/04/19 13:41) Unknown reaction NSAIDS (Non-Steroidal Anti-Inflamma [Nsaids] Adverse Reaction (Mild, Verified 13:41) stomach upset Past Medical History - General Information source: Patient - Social History Smoking Status: Never Smoker Frequency of alcohol use: Rare Drug Abuse: None Family History: Reviewed & Not Pertinent Patient has suicidal ideation: No Patient has homicidal ideation: No - Past Medical History Cardiac Medical History: Reports: None Pulmonary Medical History: Reports: None EENT Medical History: Reports: None Neurological Medical History: Reports: None. Denies: Hx Cerebrovascular Accident, Hx Seizures Endocrine Medical History: Reports: None Renal/ Medical History: Reports: None Malignancy Medical History: Reports: None GI Medical History: Reports: Hx Gastroesophageal Reflux Disease, Hx Hiatal Hernia Musculoskeletal Medical History: Reports Hx Arthritis, Reports Hx Musculoskeletal Deformity, Reports Hx Musculoskeletal Trauma Skin Medical History: Reports None Psychiatric Medical History: Reports: None Traumatic Medical History: Reports: None Infectious Medical History: Reports: None Past Surgical History: Reports: Hx Orthopedic Surgery - R big and small toe, carpel tunnel bilaterally, Hx Tonsillectomy, Hx Tubal Ligation - Immunizations Immunizations up to date: Yes Hx Diphtheria, Pertussis, Tetanus Vaccination: Yes Review of Systems - Review of Systems Constitutional: No symptoms reported EENT: No symptoms reported Cardiovascular: No symptoms reported Respiratory: No symptoms reported Gastrointestinal: No symptoms reported Genitourinary: No symptoms reported Female Genitourinary: No symptoms reported Musculoskeletal: Back pain, Joint pain - Left hip down left leg Skin: No symptoms reported Hematologic/Lymphatic: No symptoms reported Neurological/Psychological: No symptoms reported Physical Exam - Vital signs Vitals: Temp Pulse Resp BP Pulse Ox 98.5 F 75 14 130/70 H 98 06/04/19 13:44 06/04/19 13:44 06/04/19 13:44 06/04/19 13:44 06/04/19 13:44 Interpretation: Normal - General General appearance: Appears well, Alert - HEENT Head: Normocephalic, Atraumatic Eyes: Normal Pupils: PERRL - Respiratory Respiratory status: No respiratory distress Chest status: Nontender Breath sounds: Normal Chest palpation: Normal - Cardiovascular Rhythm: Regular Heart sounds: Normal auscultation Murmur: No - Abdominal Inspection: Normal Distension: No distension Bowel sounds: Normal Tenderness: Nontender Organomegaly: No organomegaly - Back Back: Normal, Tender - Across left buttocks, left pelvic, down left leg Notes: No signs or symptoms of cauda equina, no loss of control of bowel bladder, no loss of - Extremities General upper extremity: Normal inspection, Nontender, Normal color, Normal ROM, Normal temperature General lower extremity: Normal inspection, Nontender, Normal color, Normal ROM, Normal temperature, Normal weight bearing. No: Aleida's sign - Neurological Neuro grossly intact: Yes Cognition: Normal Orientation: AAOx4 Macrina Coma Scale Eye Opening: Spontaneous Macrina Coma Scale Verbal: Oriented Macrina Coma Scale Motor: Obeys Commands Macrina Coma Scale Total: 15 Speech: Normal Motor strength normal: LUE, RUE, LLE, RLE Sensory: Normal - Psychological Associated symptoms: Normal affect, Normal mood - Skin Skin Temperature: Warm Skin Moisture: Dry Skin Color: Normal Course - Re-evaluation Re-evalutation: 06/04/19 16:50 Discussed chronic pain with patient. She was instructed to follow-up with primary care doctor. She was treated with Lidoderm patch as she refused most of the medications. - Vital Signs Vital signs: Temp Pulse Resp BP Pulse Ox 98.5 F 75 14 130/70 H 98 06/04/19 13:44 06/04/19 13:44 06/04/19 13:44 06/04/19 13:44 06/04/19 13:44 - Diagnostic Test Radiology reviewed: Image reviewed, Reports reviewed Discharge - Discharge Clinical Impression: Exacerbation of chronic back pain, exacerbation of chronic left hip pain Condition: Stable Disposition: HOME, SELF-CARE Additional Instructions: Chronic Pain Control Stress, inactivity, and depression make pain more severe regardless of the cause of the pain. Stress and poor physical condition can cause pain such as headaches and backache. Relaxation: Rest in a quiet place with your eyes closed for 20 minutes twice daily. Concentrate on a pleasant image, or simply "feel" your breathing. Clear your mind. Stress management: Deal with your "stressors." Either take action, or eliminate the stressor from your life. Don't let things hang over you. Accept those things you can't change. Nutrition: Eat small, balanced meals -- don't skip, don't overeat. Meals should be high-carbohydrate, low-sugar, low-fat. Exercise: Exercise helps painful conditions and eases stress. Get 30 minutes of moderate exercise, five days a week. Do an activity that does not flare your pain. Precautions: Pain which continues to disrupt daily activities, or which changes in nature, requires a medical evaluation. Pain Clinic referral is available. We do not manage chronic pain in the Emergency Department. We will try to appropriately help you through an acute flare of your chronic painful condition, but for on-going chronic pain that does not improve, you will need to see your private doctor or paint mixer. We do not provide repeated medication management of chronic painful conditions. If you wish, we can provide the name of local pain management physicians. ICE PACKS: Apply ice packs frequently against the painful area. Many different schedules are recommended, such as "20 minutes on, 20 minutes off" or "one hour ice, two hours rest." If you need to work, you may need to go longer between ice treatments. You should plan to have the area ice packed AT LEAST one fourth of the time. The ice should be applied over the wrap, tape, or splint, or over a layer of cloth -- not directly against the skin. Some ice bags have a built-in cloth and can be put directly on the skin. WARM PACKS: After approximately two days, apply gentle heat (such as a heating pad or hot water bottle) for about 20 to 30 minutes about every two hours -- at least four times daily. Warmth and elevation will help you make a more rapid recovery, and will ease the pain considerably. Do not use HOT heat, and never apply heat for longer than 30 minutes. The continuous heat can invisibly damage skin and muscles -- even when no burn is seen on the surface. Damaged muscles can make you MORE sore. Acetaminophen Acetaminophen may be taken for pain relief or fever control. It's much safer than aspirin, offering a wider range of "safe" dosages. It is safe during . Some brand names are Tylenol, Panadol, Datril, Anacin 3, Tempra, and Liquiprin. Acetaminophen can be repeated every four hours. The following are maximum recommended dosages: WEIGHT Dose Drops Elixir Chewable(80mg) (LBS.) drprs=droppers tsp=teaspoon 6 40 mg .4 ml (1/2) 6-11 80 mg .8 ml (full) 1/2 tsp 1 tab 12-16 120 mg 1 1/2 drprs 3/4 tsp 1 1/2 tabs 17-23 160 mg 2 drprs 1 tsp 2 tabs 24-30 240 mg 3 drprs 1 1/2 tsp 3 tabs 30-35 320 mg 2 tsp 4 tabs 36-41 360 mg 2 1/4 tsp 4 1/2 tabs 42-47 400 mg 2 1/2 tsp 5 tabs 48-53 480 mg 3 tsp 6 tabs 54-59 520 mg 3 1/4 tsp 6 1/2 tabs 60-64 560 mg 3 1/2 tsp 7 tabs 65-70 600 mg 3 3/4 tsp 7 1/2 tabs 71-76 640 mg 4 tsp 8 tabs 77-82 720 mg 4 1/2 tsp 9 tabs 83-88 800 mg 5 tsp 10 tabs >89 pounds or adults 650 mg to 900 mg Acetaminophen can be repeated every four hours. Maximum daily dose not to exceed 4000 mg. These maximum recommended dosages are slightly higher than the dosages written on the product container, but these dosages are very safe and well below the toxic dosage for acetaminophen. Stretching Exercises for the Back The physician has recommended that you begin stretching exercises for your back. These are often used even while the back is painful. However, you should notify the physician if the activities seem to increase your pain. PELVIC TILT: Lie flat on your back with knees bent. Tighten your stomach and buttock muscles so it flattens your lower back against the floor. Hold 10 seconds. Repeat 10 times, twice daily. KNEE RAISE: Lying on the back with knees bent, raise one knee to your chest, then the other. Hold both knees against the chest 10 seconds, then lower one knee at a time. Repeat 10 times, twice daily. PARTIAL TRUNK RAISE: Lie face down, arms at your sides. Keeping your waist on the floor, use your arms raise your chest up. Support yourself on your elbows for 30 seconds. Repeat twice daily, increasing the time to two minutes as you recover. I have applied a Lidoderm patch to your back. Please remove this in 12 hours. You can use [id number] lidocaine Aspercreme for your pain after this patch is removed. Please follow-up with your primary care doctor to orthopedics for your continued pain. FOLLOW-UP CARE: If you have been referred to a physician for follow-up care, call the physicians office for an appointment as you were instructed or within the next two days. If you experience worsening or a significant change in your symptoms, notify the physician immediately or return to the Emergency Department at any time for re-evaluation. Forms: Elevated Blood Pressure Referrals: BRONWYN MENDES MD [ACTIVE STAFF] - Follow up as needed KIRK CLAYTON DO [Primary Care Provider] - Follow up as needed
--- NOTE | 2019-06-04 14:26 | RADIOLOGY REPORT (SQ) ---
EXAM DESCRIPTION: HIP LEFT AP/LATERAL COMPLETED DATE/TIME: 06/04/2019 2:17 pm REASON FOR STUDY: pain with movement COMPARISON: None. NUMBER OF VIEWS: Two views. TECHNIQUE: AP pelvis and additional frog-leg view of the left hip. LIMITATIONS: None. FINDINGS: MINERALIZATION: Normal. LEFT HIP: No fracture or dislocation. No worrisome bone lesions. RIGHT HIP: No fracture or dislocation. No worrisome bone lesions. PUBIS AND ISCHIUM: No fracture. PELVIS: No fracture. SACRUM: No fracture or dislocation. No worrisome bone lesions. LOWER LUMBAR SPINE: No fracture or dislocation. No worrisome bone lesions. No significant disc disea se. SOFT TISSUES: No findings. OTHER: No other significant finding. IMPRESSION: NEGATIVE STUDY OF THE LEFT HIP AND PELVIS. NO RADIOGRAPHIC EVIDENCE OF ACUTE INJURY. TECHNICAL DOCUMENTATION: JOB ID: [id number] [employer]- All Rights Reserved Reading location - IP/workstation name: [email or web address]
--- NOTE | 2019-06-04 14:26 | RADIOLOGY REPORT (SQ) ---
EXAM DESCRIPTION: L SPINE WHOLE COMPLETED DATE/TIME: 06/04/2019 2:17 pm REASON FOR STUDY: pain with movement COMPARISON: None. NUMBER OF VIEWS: Five views including obliques. TECHNIQUE: AP, lateral, oblique, and sacral radiographic images acquired of the lumbar spine. LIMITATIONS: None. FINDINGS: MINERALIZATION: Normal. SEGMENTATION: Normal. No transitional anatomy. ALIGNMENT: Mild levoscoliosis. VERTEBRAE: Maintained height. No fracture or worrisome bone lesion. DISCS: Preserved height. No significant osteophytes or end plate irregularity. POSTERIOR ELEMENTS: Pedicles and facets are intact. No pars defect or posterior arch defects. HARDWARE: None in the spine. PARASPINAL SOFT TISSUES: Normal. PELVIS: Intact as visualized. No fractures or worrisome bone lesions. SI joints intact. OTHER: No other significant finding. IMPRESSION: Mild scoliosis. No acute finding. TECHNICAL DOCUMENTATION: JOB ID: [id number] [employer]- All Rights Reserved Reading location - IP/workstation name: [email or web address]
[2019-06-04] MEDS ORDERED: LIDOCAINE 5% (700 MG) TRANSDERMAL ADH..PATCH TP ONE (14:38)
[2019-06-04] MEDS ORDERED: ACETAMINOPHEN 325 MG TABLET PO ONE (14:38)
== END 2019-06-04 14:45 | disposition home or self-care (01) ==
LOC: ER 13:40
DX: G89.29 Other chronic pain (principal); M25.552 Pain in left hip; M54.9 Dorsalgia, unspecified; Z88.0 Allergy status to penicillin; Z98.51 Tubal ligation status
CPT/HCPCS: 99283; 73502; 72110; J3490 ×2

== ENCOUNTER → 2019-06-07 | Outpatient (CLI) | payer MEDICAID ==
--- NOTE | 2019-06-07 11:49 | RADIOLOGY REPORT (SQ) ---
EXAM DESCRIPTION: U/S ABDOMEN LIMITED W/O DOP COMPLETED DATE/TIME: 06/07/2019 11:28 am REASON FOR STUDY: (R10.11)RIGHT UPPER QUADRANT PAIN R10.11 RIGHT UPPER QUADRANT PAIN COMPARISON: 06/04/2018 TECHNIQUE: Dynamic and static grayscale images acquired of the abdomen and recorded on PACS. Additio nal selected color Doppler and spectral images recorded. LIMITATIONS: None. FINDINGS: PANCREAS: No masses. Visualized pancreatic duct normal caliber. LIVER: No masses. Echotexture normal. LIVER VASCULATURE: Normal directional flow of the main portal vein and hepatic veins. GALLBLADDER: No stones. Normal wall thickness. No pericholecystic fluid. ULTRASOUND-DETECTED ZHOU'S SIGN: Negative. INTRAHEPATIC DUCTS AND COMMON DUCT: CBD and intrahepatic ducts normal caliber. No filling defects. INFERIOR VENA CAVA: Normal flow. AORTA: No aneurysm. RIGHT KIDNEY: Normal size. Normal echogenicity. No solid or suspicious masses. No hydronephrosis. No calcifications. PERITONEAL AND RIGHT PLEURAL SPACE: No ascites or effusions. OTHER: No other significant findings. IMPRESSION: Unremarkable right upper quadrant ultrasound. TECHNICAL DOCUMENTATION: JOB ID: [id number]- All Rights Reserved Reading location - IP/workstation name: [email or web address]
== END ==
LOC: RAD 10:07
PROVIDERS: ATTEND Internal Medicine Gastroenterology
DX: R10.11 Right upper quadrant pain (principal)
CPT/HCPCS: 76705

== ENCOUNTER 2019-12-14 10:34 | Emergency (ER) | payer MEDICAID ==
[2019-12-14 11:05] VITALS: BP 137/78
--- NOTE | 2019-12-14 11:31 | ER Document Report ---
ED Medical Screen (RME) - General Chief Complaint: Headache Stated Complaint: HEADACHE/EYE PAIN Time Seen by Provider: 12/14/19 11:27 Primary Care Provider: KIRK MARIE DO [Primary Care Provider] - Follow up as needed Notes: 44-year-old female presents with headache for 1 month and redness to bilateral eyes. Patient states that headache moves around and states prior to this months she did not have a history of headaches. Patient has not taken anything today. Neuro grossly intact. Bilateral conjunctiva appear mildly red. PERRLA. I have greeted and performed a rapid initial assessment of this patient. A comprehensive ED assessment and evaluation of the patient, analysis of test results and completion of the medical decision making process with be conducted by additional ED providers. TRAVEL OUTSIDE OF THE [place] IN LAST 30 DAYS: No - Related Data Allergies/Adverse Reactions: Penicillins Allergy (Mild, Verified 12/14/19 11:25) Unknown reaction NSAIDS (Non-Steroidal Anti-Inflamma [Nsaids] Adverse Reaction (Mild, Verified 12/14/19 11:25) stomach upset Past Medical History - Social History Frequency of alcohol use: None Drug Abuse: None - Past Medical History Cardiac Medical History: Denies: Hx Coronary Artery Disease, Hx Heart Attack, Hx Hypertension Pulmonary Medical History: Denies: Hx Asthma, Hx Bronchitis, Hx COPD, Hx Pneumonia Neurological Medical History: Denies: Hx Cerebrovascular Accident, Hx Seizures Renal/ Medical History: Denies: Hx Peritoneal Dialysis GI Medical History: Reports: Hx Gastroesophageal Reflux Disease, Hx Hiatal Hernia. Denies: Hx Hepatitis, Hx Ulcer Musculoskeltal Medical History: Reports Hx Arthritis, Reports Hx Musculoskeletal Deformity, Reports Hx Musculoskeletal Trauma Infectious Medical History: Denies: Hx Hepatitis Past Surgical History: Reports: Hx Orthopedic Surgery - R big and small toe, carpel tunnel bilaterally, Hx Tonsillectomy, Hx Tubal Ligation. Denies: Hx Hysterectomy, Hx Mastectomy, Hx Open Heart Surgery, Hx Pacemaker - Immunizations Immunizations up to date: Yes Hx Diphtheria, Pertussis, Tetanus Vaccination: Yes Physical Exam - Vital signs Vitals: Temp Pulse Resp BP Pulse Ox 98.6 F 70 18 137/78 H 98 12/14/19 11:03 12/14/19 11:03 12/14/19 11:03 12/14/19 11:03 12/14/19 11:03 Course - Vital Signs Vital signs: Temp Pulse Resp BP Pulse Ox 98.6 F 70 18 137/78 H 98 12/14/19 11:03 12/14/19 11:03 12/14/19 11:03 12/14/19 11:03 12/14/19 11:03 Doctor's Discharge - Discharge Referrals: KIRK MARIE DO [Primary Care Provider] - Follow up as needed
[2019-12-14 12:25] LABS: BASOPHILS % (AUTO) 0.6 % (0-2); TOTAL CELLS COUNTED % (AUTO) 100 %
[2019-12-14 12:30] LABS: APPEARANCE,URINE CLEAR; BILIRUBIN,URINE NEGATIVE (NEGATIVE); COLOR,URINE YELLOW; GLUCOSE, URINE NEGATIVE (NEGATIVE); KETONES,URINE NEGATIVE (NEGATIVE); PROTEIN,URINE 30 mg/dL (NEGATIVE); URINE SPECIFIC GRAVITY 1.014; UROBILINOGEN,URINE NEGATIVE mg/dL (<2.0)
[2019-12-14 12:37] LABS: ABSOLUTE EOSINOPHILS # (AUTO) 0.3 10^3/uL (0.0-0.6); ABSOLUTE LYMPHOCYTES (AUTO) 1.8 10^3/uL (0.5-4.7); ABSOLUTE MONOCYTES (AUTO) 0.4 10^3/uL (0.1-1.4); ABSOLUTE NEUT (AUTO) 1.6 10^3/uL (1.7-8.2); EOSINOPHILS % (AUTO) 6.2 % (0-6); HEMATOCRIT 37.4 % (36.0-47.0); HEMOGLOBIN 12.8 g/dL (12.0-15.5); MEAN CORPUSCULAR HEMOGLOBIN 30.8 pg (27.0-33.4); MEAN CORPUSCULAR HGB CONC 34.2 g/dL (32.0-36.0); MEAN CORPUSCULAR VOLUME 90 fl (80-97); MONOCYTES % (AUTO) 10.5 % (3-13); PLATELET COUNT 294 10^3/uL (150-450); RED BLOOD COUNT 4.15 10^6/uL (3.72-5.28); RED CELL DISTRIBUTION WIDTH 13.5 % (11.5-14.0); SEGMENTED NEUTROPHILS % (AUTO) 38.7 % (42-78); WHITE BLOOD COUNT 4.2 10^3/uL (4.0-10.5)
[2019-12-14 12:45] LABS: ANION GAP 6 (5-19); BLOOD UREA NITROGEN 12 mg/dL (7-20); CALCIUM 10.3 mg/dL (8.4-10.2); CARBON DIOXIDE 30 mmol/L (22-30); CHLORIDE 102 mmol/L (98-107); GLUCOSE 84 mg/dL (75-110); POTASSIUM 4.5 mmol/L (3.6-5.0)
[2019-12-14] MEDS ORDERED: BENZONATATE 100 MG CAPSULE PO ONE (14:39)
[2019-12-14] MEDS ORDERED: DOXYCYCLINE HYCLATE 100 MG TABLET PO ONE (14:39)
--- NOTE | 2019-12-14 14:48 | ER Document Report ---
ED Headache - General Chief Complaint: Headache Stated Complaint: HEADACHE/EYE PAIN Time Seen by Provider: 12/14/19 11:27 Primary Care Provider: KIRK MARIE DO [Primary Care Provider] - Follow up in 1 week Notes: Patient is a 44-year-old female who presents the emergency department with a chief complaint of a headache. Patient states that she has had a headache for the past about a month. Patient states that she was diagnosed with strep about a month ago in urgent care and was placed on azithromycin. Patient states that she continuously ended up having a headache. She also has complaints of erythema to both eyes. States that she has been coughing since then. TRAVEL OUTSIDE OF THE [place] IN LAST 30 DAYS: No - Related Data Allergies/Adverse Reactions: Penicillins Allergy (Mild, Verified 12/14/19 11:25) Unknown reaction NSAIDS (Non-Steroidal Anti-Inflamma [Nsaids] Adverse Reaction (Mild, Verified 12/14/19 11:25) stomach upset Past Medical History - Social History Smoking Status: Never Smoker Frequency of alcohol use: None Drug Abuse: None Family History: Reviewed & Not Pertinent Patient has suicidal ideation: No Patient has homicidal ideation: No - Past Medical History Cardiac Medical History: Denies: Hx Coronary Artery Disease, Hx Heart Attack, Hx Hypertension Pulmonary Medical History: Denies: Hx Asthma, Hx Bronchitis, Hx COPD, Hx Pneumonia Neurological Medical History: Denies: Hx Cerebrovascular Accident, Hx Seizures Renal/ Medical History: Denies: Hx Peritoneal Dialysis GI Medical History: Reports: Hx Gastroesophageal Reflux Disease, Hx Hiatal Hernia. 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 Denies: Hx Hysterectomy, Hx Mastectomy, Hx Open Heart Surgery, Hx Pacemaker - Immunizations Immunizations up to date: Yes Hx Diphtheria, Pertussis, Tetanus Vaccination: Yes Review of Systems - Review of Systems Notes: REVIEW OF SYSTEMS: CONSTITUTIONAL : Denies recent illness. Denies recent unintentional weight loss. Denies fever, chills, or sweats. EENT: Denies eye, ear, throat, or mouth pain, discharge, or symptoms. Denies nasal or sinus congestion. CARDIOVASCULAR: Denies chest pain. RESPIRATORY: Denies shortness of breath, cough, congestion, difficulty breathing, or wheezing. GASTROINTESTINAL: Denies nausea, vomiting, and diarrhea. Denies abdominal pain. Denies constipation. GENITOURINARY: Denies difficulty urinating, burning, blood in urine, urgency or frequency. MUSCULOSKELETAL: Denies neck and back pain. Denies joint pain or swelling. SKIN: Denies rash, itchiness, or lesions HEMATOLOGIC : Denies easy bruising or bleeding. LYMPHATIC: Denies swollen, painful, enlarged glands. NEUROLOGICAL: See HPI. PSYCHIATRIC: Denies stress, anxiety, alteration in sleep patterns, or depression. All other systems reviewed and negative. Physical Exam - Vital signs Vitals: Temp Pulse Resp BP Pulse Ox 98.6 F 70 18 137/78 H 98 12/14/19 11:03 12/14/19 11:03 12/14/19 11:03 12/14/19 11:03 12/14/19 11:03 - Notes Notes: PHYSICAL EXAMINATION: GENERAL: Appears well, healthy, well-nourished, no acute distress. HEAD: Normocephalic, atraumatic. Tenderness noted to frontal and maxillary sinuses. EYES: PERRL, conjunctiva injected bilaterally, all extraocular movements intact, sclera nonicteric ENT: Moist mucous membranes. NECK: Supple, no noticeable swelling, redness, rash. Normal range of motion. LUNGS: Equal breath sounds bilaterally and clear to auscultation. No wheezes rales or rhonchi. CARDIOVASCULAR: S1-S2, regular rate, regular rhythm. Radial pulses 2+, normal. ABDOMEN: Normoactive bowel sounds. Soft, nontender, no guarding, no rebound tenderness, and no masses palpated. EXTREMITIES: Normal strength and range of motion, no pitting or edema. No cyanosis. NEUROLOGICAL: Moves all extremities upon command. Strength 5/5 in all extremities. PSYCH: Normal mood, normal affect. SKIN: Warm, dry. No rash, lesions, ulcerations noted. Normal skin turgor. - HEENT Visual acuity- Right eye: 20/25 Visual acuity- Left eye: 20/25 Visual acuity- Both eyes: 20/25 Corrective lenses worn: Yes Course - Re-evaluation Re-evalutation: 12/14/19 14:41 Hematology and chemistries are unremarkable. hCG is negative. Urinalysis shows a moderate amount of blood, but patient is currently on her menstrual cycle. Physical exam is consistent with sinusitis. Patient will be started on doxycycline, she is allergic to penicillins. She also be placed on prednisone, as she is allergic to NSAIDs. She will follow-up with her primary care provider. She is in agreement with this plan. A very low suspicion for intracranial hemorrhage, intracranial mass, or any life-threatening etiology at this time. Follow-up precautions were given. Verbal discharge instructions were given to the patient. They verbalized understanding. They are stable for discharge. - Vital Signs Vital signs: Temp Pulse Resp BP Pulse Ox 98.6 F 70 18 137/78 H 98 12/14/19 11:03 12/14/19 11:03 12/14/19 11:03 12/14/19 11:03 12/14/19 11:03 - Laboratory Result Diagrams: 12/14/19 12:01 12/14/19 12:01 Laboratory results interpreted by me: 12/14/19 12/14/19 12/14/19 12:01 12:01 12:01 Eos % (Auto) 6.2 H Absolute Neuts (auto) 1.6 L Seg Neutrophils % 38.7 L Calcium 10.3 H Urine Protein 30 H Urine Blood MODERATE H Discharge - Discharge Clinical Impression: Sinusitis Qualifiers: Sinusitis location: pansinusitis Chronicity: acute Recurrence: not specified as recurrent Qualified Code(s): J01.40 - Acute pansinusitis, unspecified Headache Qualifiers: Headache type: unspecified Headache chronicity pattern: acute headache Intractability: not intractable Qualified Code(s): R51 - Headache Condition: Stable Disposition: HOME, SELF-CARE Additional Instructions: Sinusitis You have sinusitis, an infection of the sinus cavities of the face. The sinuses are air-filled chambers which open into the inside of the nose. Bacteria and pus fill a sinus, causing pain, drainage, and fever. Sinusitis is treated with antibiotics. Often, expectorants (to thin the sinus mucous) or decongestants (to reduce swelling) are prescribed as well. Healing requires seven to 10 days. Avoid chemical fumes, pollens, dusts, and smoke (especially cigarette smoke). Keep the air humidified in your bedroom and work area and take plenty of liquids by mouth. This condition can be serious if the infection spreads. If your symptoms worsen, or if you develop severe headache, high fever, stiff neck, or a rash, you must call the doctor or return for re-evaluation. Prescriptions: Promethazine HCl/Codeine [Prometh-Codein 6.25-10 mg/5 ml] 5 ml PO QHS PRN 7 Days #35 ml PRN Reason: Benzonatate [Tessalon Perles 100 mg Capsule] 100 mg PO Q8HP PRN #40 capsule PRN Reason: Prednisone [Deltasone 20 mg Tablet] 3 tab PO DAILY 5 Days #15 tablet Fluticasone Propionate [Flonase Nasal Whitakers 50 Mcg/Whitakers 16 gm] 2 sprays NASL DAILY #1 inhaler Polymyxin B Sulf/Trimethoprim [Polytrim Eye Drops] 1 drop OD QID 7 Days #10 ml Doxycycline Hyclate [Vibramycin 100 mg Tablet] 100 mg PO BID #14 tablet Referrals: KIRK MARIE DO [Primary Care Provider] - Follow up in 1 week
== END 2019-12-14 15:49 | disposition home or self-care (01) ==
LOC: ER 10:34
DX: J01.40 Acute pansinusitis, unspecified (principal); R51 Headache; L53.9 Erythematous condition, unspecified; R31.9 Hematuria, unspecified; Z88.0 Allergy status to penicillin
CPT/HCPCS: 99284; 36415; 84703; 85025; 80048; 81001; J3490 ×2

== ENCOUNTER 2020-01-03 10:39 | Emergency (ER) | payer MEDICAID ==
[2020-01-03 11:26] LABS: APPEARANCE,URINE SLIGHTLY-CLOUDY; BILIRUBIN,URINE NEGATIVE (NEGATIVE); COLOR,URINE YELLOW; GLUCOSE, URINE NEGATIVE (NEGATIVE); KETONES,URINE NEGATIVE (NEGATIVE); LEUKOCYTE ESTERASE,URINE NEGATIVE (NEGATIVE); NITRITE,URINE NEGATIVE (NEGATIVE); PROTEIN,URINE 30 mg/dL (NEGATIVE); URINE SPECIFIC GRAVITY 1.002; UROBILINOGEN,URINE NEGATIVE mg/dL (<2.0)
[2020-01-03] MEDS ORDERED: ASPIRIN 81 MG TABLET, CHEWABLE PO ONE (11:27)
--- NOTE | 2020-01-03 11:27 | ER Document Report ---
ED Medical Screen (RME) - General Chief Complaint: Shortness Of Breath Stated Complaint: SHORTNESS OF BREATH Time Seen by Provider: 01/03/20 11:24 Primary Care Provider: KIRK MARIE DO [Primary Care Provider] - Follow up as needed Mode of Arrival: Ambulatory Information source: Patient Notes: 44-year-old female presents to ED for palpitations and shortness of breath that started this morning. Her EKG does show atrial fibrillation. She states she is never been diagnosed with atrial fibrillation. States she does have a history of high cholesterol. Denies any pain at this time. She just can feel the palpitations and short of breath I have greeted and performed a rapid initial assessment of this patient. A comprehensive ED assessment and evaluation of the patient, analysis of test results and completion of medical decision making process will be conducted by an additional ED providers. TRAVEL OUTSIDE OF THE [place] IN LAST 30 DAYS: No - Related Data Allergies/Adverse Reactions: Penicillins Allergy (Mild, Verified 01/03/20 11:25) Unknown reaction NSAIDS (Non-Steroidal Anti-Inflamma [Nsaids] Adverse Reaction (Mild, Verified 01/03/20 11:25) stomach upset Past Medical History - Past Medical History Cardiac Medical History: Denies: Hx Coronary Artery Disease, Hx Heart Attack, Hx Hypertension Pulmonary Medical History: Denies: Hx Asthma, Hx Bronchitis, Hx COPD, Hx Pneumonia Neurological Medical History: Denies: Hx Cerebrovascular Accident, Hx Seizures Renal/ Medical History: Denies: Hx Peritoneal Dialysis GI Medical History: Reports: Hx Gastroesophageal Reflux Disease, Hx Hiatal Hernia. Denies: Hx Hepatitis, Hx Ulcer Musculoskeltal Medical History: Reports Hx Arthritis, Reports Hx Musculoskeletal Deformity, Reports Hx Musculoskeletal Trauma Infectious Medical History: Denies: Hx Hepatitis Past Surgical History: Reports: Hx Orthopedic Surgery - R big and small toe, carpel tunnel bilaterally, Hx Tonsillectomy, Hx Tubal Ligation. Denies: Hx Hysterectomy, Hx Mastectomy, Hx Open Heart Surgery, Hx Pacemaker - Immunizations Immunizations up to date: Yes Hx Diphtheria, Pertussis, Tetanus Vaccination: Yes Physical Exam - Vital signs Vitals: Temp Pulse Resp BP Pulse Ox 97.8 F 120 H 18 147/89 H 99 01/03/20 10:42 01/03/20 10:42 01/03/20 10:42 01/03/20 10:42 01/03/20 10:42 Course - Vital Signs Vital signs: Temp Pulse Resp BP Pulse Ox 97.8 F 120 H 18 147/89 H 99 01/03/20 10:42 01/03/20 10:42 01/03/20 10:42 01/03/20 10:42 01/03/20 10:42 Doctor's Discharge - Discharge Referrals: KIRK MARIE DO [Primary Care Provider] - Follow up as needed
--- NOTE | 2020-01-03 11:46 | EKG REPORT ---
SEVERITY:- ABNORMAL ECG - ATRIAL FIBRILLATION, V-RATE 97-161 PROBABLE ANTEROSEPTAL INFARCT, OLD : Confirmed by: Faiza Strickland 03-Jan-2020 11:46:19
[2020-01-03] MEDS ORDERED: DILTIAZEM HCL INJ 25 MG/5 ML VIAL IV ONE (12:14)
--- NOTE | 2020-01-03 12:16 | RADIOLOGY REPORT (SQ) ---
EXAM DESCRIPTION: CHEST 2 VIEWS COMPLETED DATE/TIME: 01/03/2020 11:53 am REASON FOR STUDY: Short of breath palpitation atrial fib COMPARISON: 08/14/2017. EXAM PARAMETERS: NUMBER OF VIEWS: two views TECHNIQUE: Digital Frontal and Lateral radiographic views of the chest acquired. RADIATION DOSE: NA LIMITATIONS: none FINDINGS: LUNGS AND PLEURA: No opacities, masses or pneumothorax. No pleural effusion. MEDIASTINUM AND HILAR STRUCTURES: No masses or contour abnormalities. HEART AND VASCULAR STRUCTURES: Heart normal size. No evidence for failure. BONES: No acute findings. HARDWARE: None in the chest. OTHER: No other significant finding. IMPRESSION: NO ACUTE RADIOGRAPHIC FINDING IN THE CHEST. TECHNICAL DOCUMENTATION: JOB ID: [id number] 2010 [employer]- All Rights Reserved Reading location - IP/workstation name: [email or web address]
[2020-01-03 13:01] LABS: ABSOLUTE EOSINOPHILS # (AUTO) 0.1 10^3/uL (0.0-0.6); ABSOLUTE LYMPHOCYTES (AUTO) 1.6 10^3/uL (0.5-4.7); ABSOLUTE MONOCYTES (AUTO) 0.5 10^3/uL (0.1-1.4); ABSOLUTE NEUT (AUTO) 1.5 10^3/uL (1.7-8.2); BASOPHILS % (AUTO) 0.6 % (0-2); EOSINOPHILS % (AUTO) 2.7 % (0-6); HEMATOCRIT 33.6 % (36.0-47.0); HEMOGLOBIN 11.2 g/dL (12.0-15.5); LYMPHOCYTES % (AUTO) 43.3 % (13-45); MEAN CORPUSCULAR HEMOGLOBIN 30.7 pg (27.0-33.4); MEAN CORPUSCULAR HGB CONC 33.3 g/dL (32.0-36.0); MEAN CORPUSCULAR VOLUME 92 fl (80-97); MONOCYTES % (AUTO) 12.8 % (3-13); PLATELET COUNT 216 10^3/uL (150-450); RED BLOOD COUNT 3.64 10^6/uL (3.72-5.28); RED CELL DISTRIBUTION WIDTH 13.8 % (11.5-14.0); SEGMENTED NEUTROPHILS % (AUTO) 40.6 % (42-78); TOTAL CELLS COUNTED % (AUTO) 100 %; WHITE BLOOD COUNT 3.7 10^3/uL (4.0-10.5)
--- NOTE | 2020-01-03 13:07 | ER Document Report ---
ED General - General Chief Complaint: Palpitations Stated Complaint: SHORTNESS OF BREATH Time Seen by Provider: 01/03/20 11:24 Primary Care Provider: ERI MAS MD [ACTIVE PROVISIONAL STAFF] - Follow up as needed KIRK MARIE DO [Primary Care Provider] - Follow up as needed Mode of Arrival: Ambulatory TRAVEL OUTSIDE OF THE [place] IN LAST 30 DAYS: No - HPI Notes: Patient is a 44-year-old female presents emergency department for evaluation of shortness of breath as well as palpitations. They started earlier today. Her palpitations have continued so she presents here. She does have a history of these. She states they usually only last a few seconds and then they resolved. She denies any associated chest pain, nausea, diaphoresis, near syncope. She has no history of arrhythmia or coronary artery disease to her knowledge. - Related Data Allergies/Adverse Reactions: Penicillins Allergy (Mild, Verified 01/03/20 11:25) Unknown reaction NSAIDS (Non-Steroidal Anti-Inflamma [Nsaids] Adverse Reaction (Mild, Verified 01/03/20 11:25) stomach upset Past Medical History - General Information source: Patient - Social History Smoking Status: Never Smoker Family History: Reviewed & Not Pertinent Patient has suicidal ideation: No Patient has homicidal ideation: No - Past Medical History Cardiac Medical History: Denies: Hx Coronary Artery Disease, Hx Heart Attack, Hx Hypertension Pulmonary Medical History: Denies: Hx Asthma, Hx Bronchitis, Hx COPD, Hx Pneumonia Neurological Medical History: Denies: Hx Cerebrovascular Accident, Hx Seizures Renal/ Medical History: Denies: Hx Peritoneal Dialysis GI Medical History: Reports: Hx Gastroesophageal Reflux Disease, Hx Hiatal Hernia. Denies: Hx Hepatitis, Hx Ulcer Musculoskeletal Medical History: Reports Hx Arthritis, Reports Hx Musculoskeletal Deformity, Reports Hx Musculoskeletal Trauma Infectious Medical History: Denies: Hx Hepatitis Past Surgical History: Reports: Hx Orthopedic Surgery - R big and small toe, carpel tunnel bilaterally, Hx Tonsillectomy, Hx Tubal Ligation. Denies: Hx Hysterectomy, Hx Mastectomy, Hx Open Heart Surgery, Hx Pacemaker - Immunizations Immunizations up to date: Yes Hx Diphtheria, Pertussis, Tetanus Vaccination: Yes Review of Systems - Review of Systems Cardiovascular: See HPI Respiratory: See HPI -: Yes All other systems reviewed and negative Physical Exam - Vital signs Vitals: Temp Pulse Resp BP Pulse Ox 97.8 F 120 H 18 147/89 H 99 03/10/20 10:42 01/03/20 10:42 01/03/20 10:42 01/03/20 10:42 01/03/20 10:42 - Notes Notes: Vital signs reviewed, please refer to chart. Head is normocephalic, atraumatic. Pupils equal round, reactive to light. Neck is supple without meningismus. Heart is irregularly irregular. Lungs are clear to auscultation bilaterally. Abdomen is soft, nontender, normoactive bowel sounds throughout. Extremities without cyanosis, clubbing. Posterior calves are nontender. Peripheral pulses are equal. Skin is warm and dry. Patient is awake, alert, neurological exam is nonfocal. Course - Re-evaluation Re-evalutation: 01/03/20 13:06 Patient presents emergency department for evaluation. Initially she was found to be in rapid atrial fibrillation. She has no heart history, no signs of heart failure. Decision was made to proceed with Cardizem therapy. She was given a bolus and started on low-dose drip. Shortly afterwards, it appears that the patient has converted back to sinus rhythm. She is stable. Repeat EKG is ordered, awaiting lab work. We will continue to monitor. 01/03/20 14:37 Patient converted to sinus mechanism after bolus dose of Cardizem. She has been stable and in sinus since then. The patient has no further symptoms. Her laboratory investigations are unremarkable. Awaiting conversation with on-call rn visiting, Dr. Mas, to determine ultimate disposition and appropriate outpatient medications. 01/03/20 14:[address] Mas. He agrees with Eliquis, beta-kelly, and outpatient follow-up. Patient is given her first dose of Eliquis here. I will send the patient home with a Toprol prescription and referral on to Dr. Mas. Patient is amenable to this. She is to return to the ED with worsening or new concerning symptoms of any sort. - Vital Signs Vital signs: Temp Pulse Resp BP Pulse Ox 97.8 F 120 H 14 131/84 H 100 01/03/20 10:42 01/03/20 10:42 01/03/20 15:01 01/03/20 15:00 01/03/20 15:01 - Laboratory Result Diagrams: 01/03/20 12:50 01/03/20 12:50 Laboratory results interpreted by me: 01/03/20 01/03/20 01/03/20 10:55 12:50 12:50 WBC 3.7 L RBC 3.64 L Hgb 11.2 L Hct 33.6 L Absolute Neuts (auto) 1.5 L Seg Neutrophils % 40.6 L Chloride 108 H BUN 6 L Urine Protein 30 H Urine Blood LARGE H - Diagnostic Test Radiology reviewed: Reports reviewed Radiology results interpreted by me: 01/03/20 13:07 Chest X-Ray 01/03/20 11:28 IMPRESSION: NO ACUTE RADIOGRAPHIC FINDING IN THE CHEST. - EKG Interpretation by Me Additional EKG results interpreted by me: 01/03/20 13:07 Atrial fibrillation with a rate of 123 beats minute. Normal axis and intervals, no acute ST changes concerning for ischemia or infarction. No studies available for comparison. 01/03/20 14:37 Repeat EKG performed at 1315 revealed sinus rhythm. Critical Care Note - Critical Care Note Total time excluding time spent on procedures (mins): 20 Discharge - Discharge Clinical Impression: Paroxysmal atrial fibrillation Condition: Stable Disposition: HOME, SELF-CARE Instructions: Atrial Fibrillation ([facility]), Beta Blockers ([facility]), Palpitations (Irregular or Rapid Heartrate) ([facility]) Additional Instructions: Take medications as prescribed. Please follow-up with Dr. Mas, on-call ca rdiologist. You can expect his phone call shortly, but if you have not heard from his office, please call to set up an appointment this week. If you develop chest pain, difficulty breathing, or any other new or concerning symptoms, please return immediately to the emergency department for evaluation. Prescriptions: Apixaban [Eliquis 5 mg Tablet] 5 mg PO BID #20 tablet Metoprolol Succinate [Toprol Xl 25 mg Tab.sr] 25 mg PO DAILY #30 tab.sr.24h Referrals: KIRK MARIE DO [Primary Care Provider] - Follow up as needed ERI MAS MD [ACTIVE PROVISIONAL STAFF] - Follow up as needed
[2020-01-03 13:18] LABS: ALBUMIN 4.6 g/dL (3.5-5.0); ALKALINE PHOSPHATASE 125 U/L (38-126); ANION GAP 7 (5-19); ASPARTATE AMINO TRANSFERASE 30 U/L (14-36); BILIRUBIN,TOTAL 0.4 mg/dL (0.2-1.3); BLOOD UREA NITROGEN 6 mg/dL (7-20); CALCIUM 9.6 mg/dL (8.4-10.2); CARBON DIOXIDE 26 mmol/L (22-30); CHLORIDE 108 mmol/L (98-107); GLUCOSE 109 mg/dL (75-110); POTASSIUM 3.9 mmol/L (3.6-5.0); TOTAL PROTEIN 8.2 g/dL (6.3-8.2)
[2020-01-03] MEDS ORDERED: APIXABAN 5 MG TABLET PO ONE (14:45)
[2020-01-03 15:10] VITALS: BP 131/84
--- NOTE | 2020-01-03 19:31 | EKG REPORT ---
SEVERITY:- NORMAL ECG - SINUS RHYTHM : Confirmed by: Faiza Striclkand 03-Jan-2020 19:30:43
== END 2020-01-03 15:46 | disposition home or self-care (01) ==
LOC: ER 10:39
DX: I48.0 Paroxysmal atrial fibrillation (principal); R06.02 Shortness of breath; Z88.0 Allergy status to penicillin; Z88.8 Allergy status to other drugs, medicaments and biological substances
CPT/HCPCS: 93005; 99285; 96374; 36415; 84443; 85025; 80053; 81001; 84484; 71046; 93010; J3490

== ENCOUNTER 2020-06-12 09:14 | Emergency (ER) | payer MEDICAID ==
[2020-06-12] MEDS ORDERED: ACETAMINOPHEN 325 MG TABLET PO ONE (10:28)
--- NOTE | 2020-06-12 10:30 | ER Document Report ---
HPI - HPI Time Seen by Provider: 06/12/20 10:22 Pain Level: 4 - CONSTITUTIONAL Constitutional: DENIES: Fever, Chills Notes: 45-year-old female presents emergency room right ankle and right foot pain x1 day after playing around with child yesterday. denies hitting head or change in loc. reports pain to back and lateral aspect of left foot or left ankle. Denies any specific trauma, thinks she just banged it on the side of a chair. Unable to bear full weight can bear partial weight. Denies any other area of injury. Reports pain is 3 out of 5. Took Tylenol with some relief last night. Has not tried any icing or heating. Denies any previous injury to left ankle or left foot. Denies fevers, chills, chest pain,palpitations, shortness of breath, dyspnea, nausea, vomiting, diarrhea, abdominal pain, hematuria,blurred vision, double vision, loss of vision, speech changes, LH, dizziness, syncope, headaches, wheezing, ST, URI, neck pain, weakness, bowel or bladder dysfunction, saddle anesthesia, numbness or tingling in bilateral upper or lower extremities equally, muscle paralysis, weakness in bilateral upper or lower extremities equally or rash. Denies IV drug use. MEDICATIONS: I agree with the patient medications as charted by the RN. ALLERGIES: I agree with the allergies as charted by the RN. PAST MEDICAL HISTORY/PAST SURGICAL HISTORY: Reviewed and agree as charted by RN. SOCIAL HISTORY: Reviewed and agree as charted by RN. FAMILY HISTORY: No significant familial comorbid conditions directly related to patient complaint EXAM: Reviewed vital signs as charted by RN. REVIEW OF SYSTEMS:reviewed vital signs by RN CONSTITUTIONAL : Denies fever, chills, or sweats. Denies recent illness. EENT: Denies eye, ear, throat, or mouth pain or symptoms. Denies nasal or sinus congestion or discharge. Denies throat, tongue, or mouth swelling or difficulty swallowing. CARDIOVASCULAR: Denies chest pain. Denies palpitations or racing or irregular heart beat. Denies ankle edema. RESPIRATORY: Denies cough, cold, or chest congestion. Denies shortness of breath, difficulty breathing, or wheezing. GASTROINTESTINAL: Denies abdominal pain or distention. Denies nausea, vomiting, or diarrhea. Denies blood in vomitus, stools, or per rectum. Denies black, tarry stools. Denies constipation. GENITOURINARY: Denies difficulty urinating, painful urination, burning, frequency, blood in urine, or discharge. FEMALE GENITOURINARY: Denies vaginal bleeding, heavy or abnormal periods, irregular periods. Denies vaginal discharge or odor. MUSCULOSKELETAL: left ankle/foot pain. Denies back or neck pain or stiffness. Denies joint pain or swelling. SKIN: Denies rash, lesions or sores. HEMATOLOGIC : Denies easy bruising or bleeding. LYMPHATIC: Denies swollen, enlarged glands. NEUROLOGICAL: Denies confusion or altered mental status. Denies passing out or loss of consciousness. Denies dizziness or lightheadedness. Denies headache. Denies weakness or paralysis or loss of use of either side. Denies problems with gait or speech. Denies sensory loss, numbness, or tingling. Denies seizures. PSYCHIATRIC: Denies anxiety or stress. Denies depression, suicidal ideation, or homicidal ideation. ALL OTHER SYSTEMS REVIEWED AND NEGATIVE. PHYSICAL EXAMINATION: GENERAL: Well-appearing, well-nourished and in no acute distress. HEAD: Atraumatic, normocephalic. EYES: Pupils equal round and reactive to light, extraocular movements intact, conjunctiva are normal. ENT: Nares patent, oropharynx clear without exudates. Moist mucous membranes. NECK: Normal range of motion, supple without lymphadenopathy LUNGS: Breath sounds clear to auscultation bilaterally and equal. No wheezes rales or rhonchi. HEART: Regular rate and rhythm without murmurs ABDOMEN: Soft, nontender, nondistended abdomen. No guarding, no rebound. No masses appreciated. Female : deferred Musculoskeletal: Normal range of motion, no pitting or edema. No cyanosis. left ankle with swelling, tenderness on posterior/lateral aspect of ankle. pain with inversion. squeeze test negative. dtr +2 BLE. Limited APROM. distal pulses + 2 BLE equally. Full motor and sensory function of bilateral lower extremities. No noted open wounds or abrasion. Normal gait. No vascular compromise. Peroneal nerve is intact with strong eversion and plantar flexion. Negative anterior drawer test. muscle strength 5/5 in BLE equally. NEUROLOGICAL: Cranial nerves grossly intact. Normal speech, normal gait. Normal sensory, motor exams PSYCH: Normal mood, normal affect. SKIN: Warm, Dry, normal turgor, no rashes or lesions noted. Dictation was performed using [employer] voice recognition software - REPRODUCTIVE LMP: 06/04/2020 Reproductive: DENIES: : - MUSCULOSKELETAL Musculoskeletal: REPORTS: Extremity pain - lt lateral foot - DERM Skin Color: Normal, [place] Past Medical History - Social History Smoking Status: Never Smoker Chew tobacco use (# tins/day): No Frequency of alcohol use: None Drug Abuse: None Family History: Reviewed & Not Pertinent Patient has homicidal ideation: No - Past Medical History Cardiac Medical History: Reports: Hx Hypercholesterolemia Denies: Hx Coronary Artery Disease, Hx Heart Attack, Hx Hypertension Pulmonary Medical History: Denies: Hx Asthma, Hx Bronchitis, Hx COPD, Hx Pneumonia Neurological Medical History: Denies: Hx Cerebrovascular Accident, Hx Seizures Renal/ Medical History: Denies: Hx Peritoneal Dialysis GI Medical History: Reports: Hx Gastroesophageal Reflux Disease, Hx Hiatal H ernia. Denies: Hx Hepatitis, Hx Ulcer Musculoskeletal Medical History: Reports Hx Arthritis, Reports Hx Musculoskeletal Deformity, Reports Hx Musculoskeletal Trauma Infectious Medical History: Denies: Hx Hepatitis Past Surgical History: Reports: Hx Orthopedic Surgery - mult deny feet, DENY carpel tunnel, Hx Tonsillectomy, Hx Tubal Ligation. Denies: Hx Hysterectomy, Hx Mastectomy, Hx Open Heart Surgery, Hx Pacemaker - Immunizations Immunizations up to date: Yes Hx Diphtheria, Pertussis, Tetanus Vaccination: Yes Vertical Provider Document - INFECTION CONTROL TRAVEL OUTSIDE OF THE [place] IN LAST 30 DAYS: No Course - Re-evaluation Re-evalutation: 06/12/20 11:29 Afebrile vital stable no distress. Nurses notes reviewed. X-ray negative for any acute fracture dislocation. Discussed the patient that she needs to follow rice therapy, Aircast, crutches, take Tylenol for pain. Follow-up with shipping specialist and primary care provider next 24 to 48 hours. Advised to have imaging redone in 5 days if she still experiencing severe pain to look for any occult fractures.After performing a Medical Screening Examination, I estimate there is LOW risk for OPEN FRACTURE, COMPARTMENT SYNDROME, DEEP VENOUS THROMBOSIS, ACUTE TENDON RUPTURE, or NEUROVASCULAR INJURY thus I consider the discharge disposition reasonable. I have reevaluated this patient multiple times and no significant life threatening changes are noted. The patient and I have discussed the diagnosis and risks, and we agree with discharging home to closely follow-up with their primary doctor or the referral orthopedist with the understanding that symptoms and presentations can change. We also discussed returning to the Emergency Department immediately if new or worsening symptoms occur. We have discussed the symptoms which are most concerning (e.g., changing or worsening pain, numbness, weakness) that necessitate immediate return - Vital Signs Vital signs: Temp Pulse Resp BP Pulse Ox 98.3 F 79 16 131/75 H 100 06/12/20 09:19 06/12/20 09:19 06/12/20 09:19 06/12/20 09:19 06/12/20 09:19 Discharge - Discharge Clinical Impression: Left ankle pain Condition: Stable Disposition: HOME, SELF-CARE Instructions: Soft Ankle Splint ([facility]), Ankle Stirrup Splint ([facility]), Sprained Ankle ([facility]), Use of Crutches ([facility]) Additional Instructions: Your x-ray was negative today for any acute fractures. You were given an Aircast and crutches to help facilitate the healing process of your sprain. Please elevate above level of heart, apply heat 20 minutes on 20 minutes off several times a day. Please follow-up with shipping specialist and primary care provider in the next 24 to 48 hours for further evaluation. You can only take Tylenol for your pain control. Please take every 46 hours as needed. Return immediately for any new or worsening symptoms. Follow up with primary care provider, call tomorrow to make followup appointment. Referrals: GÓMEZ GOMEZ FNP [NO LOCAL MD] - Follow up as needed CATHERINE MEDINA MD [ACTIVE STAFF] - Follow up as needed
--- NOTE | 2020-06-12 11:08 | RADIOLOGY REPORT (SQ) ---
EXAM DESCRIPTION: FOOT LEFT COMPLETE IMAGES COMPLETED DATE/TIME: 06/12/2020 9:51 am REASON FOR STUDY: pain to lateral proximal foot COMPARISON: None. NUMBER OF VIEWS: Three views. TECHNIQUE: AP, lateral and oblique radiographic images acquired of the left foot. LIMITATIONS: None. FINDINGS: MINERALIZATION: Normal. BONES: No acute fracture or dislocation. No worrisome bone lesions. JOINTS: No effusions. SOFT TISSUES: No soft tissue swelling. No foreign body. OTHER: No other significant finding. IMPRESSION: NEGATIVE STUDY OF THE LEFT FOOT. NO RADIOGRAPHIC EVIDENCE OF ACUTE INJURY. TECHNICAL DOCUMENTATION: JOB ID: [id number] 2010 [employer]- All Rights Reserved Reading location - IP/workstation name: [email or web address]
[2020-06-12 11:43] VITALS: BP 115/63
== END 2020-06-12 11:43 | disposition home or self-care (01) ==
LOC: ER 09:14
DX: M25.571 Pain in right ankle and joints of right foot (principal); M79.671 Pain in right foot; W22.03XA Walked into furniture, initial encounter; Z79.899 Other long term (current) drug therapy
CPT/HCPCS: 99283; 73630; J3490

== ENCOUNTER → 2020-06-25 | Outpatient (CLI) | payer MEDICAID ==
--- NOTE | 2020-06-25 15:08 | RADIOLOGY REPORT (SQ) ---
EXAM DESCRIPTION: FOREARM LEFT COMPLETED DATE/TIME: 06/25/2020 2:10 pm REASON FOR STUDY: LOCALIZED SWELLING, MASS AND LUMP, LEFT UPPER LIMB R22.32 LOCALIZED SWELLING, MAS S AND LUMP, LEFT UPPER LIMB COMPARISON: None. NUMBER OF VIEWS: Two views. TECHNIQUE: Two radiographic images acquired of the left forearm, including elbow and wrist in at [address] one projection. LIMITATIONS: None. FINDINGS: MINERALIZATION: Normal. BONES: No acute fracture or dislocation. No worrisome bone lesions. No significant osteophytes. SOFT TISSUES: Mild subcutaneous edema is noted along the mid ulna. OTHER: No other significant finding. IMPRESSION: Mild subcutaneous edema. No other significant findings. TECHNICAL DOCUMENTATION: JOB ID: [id number] 2010 [employer]- All Rights Reserved Reading location - IP/workstation name: [email or web address]
== END ==
LOC: OD 13:59
PROVIDERS: ATTEND Family Medicine
DX: R22.32 Localized swelling, mass and lump, left upper limb (principal)